=== PATIENT | female | born 1955 | race Caucasian/White ===

== ENCOUNTER 2017-01-21 09:52 | Emergency (ER) | payer MEDICARE ==
[2017-01-21 10:41] VITALS: BP 144/66
[2017-01-21] MEDS ORDERED: Albuterol 2.5 MG/3 ML NEB.SOL* (0.083%) INH ONE (10:55)
[2017-01-21] MEDS ORDERED: methylPREDNISolone 125 MG* 2 ML VIAL IV ONE (10:57)
[2017-01-21] MEDS ORDERED: methylPREDNISolone SOD 40 MG* 1 ML VIAL ONE (11:07)
[2017-01-21] MEDS ORDERED: methylPREDNISolone 125 MG* 2 ML VIAL ONE (11:08)
--- NOTE | 2017-01-21 11:48 | UC ---
guy Mccall Timothy, scribed for Winnie Louie MD on 01/21/17 at 1100 . Shortness of Breath HPI - HPI Summary HPI Summary: Jovita Nguyễn is a 61 yo female presenting to [facility] with cough and fever for the past 2 weeks. Her fever has been 101-102. She has been taking OTC cold medicine with no relief. Pt is hard of hearing, her in room is helping with communication. 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 Upon presentation, she had O2 sat in the 80's on room air. her MHx includes asthma and HTN. states she does not do regular treatment for her asthma. - History of Current Complaint Chief Complaint: UCRespiratory Stated Complaint: FEVER COUGH Time Seen by Provider: 01/21/17 10:55 Hx Obtained From: Patient, Family/[employer] Worker - Onset/Duration: Gradual Onset, Lasting Weeks, Still Present Timing: Constant Current Severity: Moderate Dyspnea At: Rest Aggrevating Factors: Nothing Alleviating Factors: Nothing Associated Signs & Symptoms: Positive: Cough (Nonproductive), Wheezing, Fever - Risk Factors Pulmonary Embolism: Negative Cardiac: Negative Pseudomonas: Chronic Lung Disease Tuberculosis: Negative - Allergy/Home Medications Allergies/Adverse Reactions: Allergies Allergy/AdvReac Type Severity Reaction Status Date / Time Codeine Allergy Severe Nausea Verified 01/21/17 10:33 Home Medications: Home Medications Albuterol HFA INHALER* [Ventolin HFA Inhaler*] 01/21/17 [History] Bp Med 1 tab BID 01/21/17 [History] Diuretic 1 tab BID 01/21/17 [History] PMH/Surg Hx/FS Hx/Imm Hx Endocrine History Of: Denies: Diabetes, Thyroid Disease Cardiovascular History Of: Reports: Hypertension Denies: Cardiac Disorders Respiratory History Of: Reports: Asthma Denies: COPD GI/ History Of: Denies: Ulcer - Surgical History Surgical History: None - Family History Known Family History: Positive: Hypertension, Diabetes - Social History Lives: With Family Alcohol Use: None Substance Use Type: None Smoking Status (MU): Never Smoked Tobacco Review of Systems Constitutional: Fever Skin: Negative Eyes: Negative ENT: Other - deaf left ear with partial hearing loss in right Respiratory: Shortness Of Breath, Cough Cardiovascular: Negative Gastrointestinal: Negative Genitourinary: Negative Motor: Negative Neurovascular: Negative Musculoskeletal: Negative Neurological: Negative Psychological: Negative All Other Systems Reviewed And Are Negative: Yes Physical Exam Triage Information Reviewed: Yes Appearance: No Pain Distress, Ill-Appearing, Obese Vital Signs: Initial Vital Signs Temp 99.2 F 01/21/17 10:34 Pulse 107 01/21/17 10:34 Resp 24 01/21/17 10:34 BP 144/66 01/21/17 10:34 Pulse Ox 85 01/21/17 10:34 low O2 sat and tachycardia noted Vital Signs Reviewed: Yes Eyes: Positive: Conjunctiva Clear ENT: Positive: Pharynx normal, TMs normal, Muffled/hoarse voice. Negative: Hearing grossly normal - deaf in left ear, hearing loss in right Neck: Positive: Supple, Nontender Respiratory: Positive: Chest non-tender, Decreased breath sounds, Wheezing - insipatory and experiatory wheezes. Negative: Normal breath sounds - decreased breath sounds throughout Cardiovascular: Positive: RRR, No Murmur, Pulses Normal, Brisk Capillary Refill Musculoskeletal: Positive: Strength Intact, ROM Intact Neurological: Positive: Alert, Muscle Tone Normal Psychological Exam: Normal Skin Exam: Normal Shortness of Breath Dx - Course Course Of Treatment: Jovita Nguyễn is a 61 yo female presenting to [facility] with SOB , fever, and cough. After clinical examination, with her lowe O2 sats, she will be transferred to [facility] for further evaluation and Tx of her breathing problems. - Differential Dx/Diagnosis Differential Diagnosis/HQI/PQRI: Asthma, Bronchitis, COPD Exacerbation, Pneumonia, Other - influenza Provider Diagnoses: dyspnea, respiratory distress - Physician Notification/Consults Discussed Patient Care With: 1100 - Adamaris Cook (PA at [facility]) - discussed Pt condition, agreed to see at [facility]. 1101 - [facility] - informed of PT condition and requested emergency transportation for Pt Discharge - Discharge Plan Condition: Stable Disposition: TRANS HIGHER LVL OF CARE FAC Discharge Disposition Comment: transferred to [facility] for higher level of care Referrals: Gerson BRAVO,Fay Driver [Primary Care Provider] - The documentation as recorded by the guy garcia Timothy accurately reflects the service I personally performed and the decisions made by me, Winnie Louie MD.
== END 2017-01-21 11:18 | disposition short-term general hospital (02) ==
LOC: UCEAST 09:52
DX: J80 Acute respiratory distress syndrome (principal); R05 Cough; R50.9 Fever, unspecified; I10 Essential (primary) hypertension; Z88.5 Allergy status to narcotic agent
CPT/HCPCS: 99203; G0463; J2920; J2930

== ENCOUNTER 2017-01-21 11:52 | Inpatient (IN) | payer MEDICARE ==
[2017-01-21] MEDS ORDERED: Albuterol/Ipratropium NEB.SOL* Albuterol 2.5 MG/Ipratropium 0.5 MG 3 ML INH PRN (12:07)
[2017-01-21] MEDS ORDERED: NS 0.9% 1000 ML* 1,000 ML IV ONE ×2 (12:07→12:34)
[2017-01-21] MEDS ORDERED: Vancomycin(*) 1,000 MG in NS 0.9% 250 ML* 250 ML IVPB ONE (12:07)
[2017-01-21] MEDS ORDERED: Vancomycin(*) 1,500 MG in NS 0.9% 250 ML* 250 ML IVPB ONE (12:09)
[2017-01-21] MEDS ORDERED: Piperac/Tazob 3.375 gm in NS* 3.375 GM/100 ML BAG IVPB ONE (12:09)
[2017-01-21 12:27] LABS: Hematocrit 40 % (35-47); Hemoglobin 12.9 g/dl (12.0-16.0); Mean Corpuscular HGB Conc 33 g/dl (31-36); Mean Corpuscular Hemoglobin 27 pg (27-31); Mean Corpuscular Volume 85 fL (80-97); Red Blood Count 4.69 10^6/ul (4.0-5.4); Red Cell Distribution Width 16 % (10.5-15); White Blood Count 11.2 10^3/ul (3.5-10.8)
[2017-01-21 12:29] LABS: Comments Flag Yes
[2017-01-21 12:32] LABS: Add Diff/Slide Review? Slide Review Added
[2017-01-21] MEDS ORDERED: Acetaminophen TAB* 325 MG PO ONE (12:44)
[2017-01-21 12:45] LABS: Albumin 3.5 g/dL (3.2-5.2); BUN/Creatinine Ratio 14.1 (8-20); Calcium 9.3 mg/dL (8.6-10.3); EGFR African American 87.7 (>60); EGFR Non-African American 68.2 (>60); Globulin 4.8 g/dL (2-4); Potassium 3.3 mmol/L (3.5-5.0); Total Protein 8.3 g/dL (6.4-8.9)
[2017-01-21 12:46] LABS: Troponin I 0.01 ng/mL (<0.04)
[2017-01-21] MEDS: Albuterol/Ipratropium NEB.SOL* Albuterol 2.5 MG/Ipratropium 0.5 MG 3 ML INH PRN ×2 (13:13→13:28)
[2017-01-21] MEDS ORDERED: Acetaminophen TAB* 325 MG PO PRN (13:32)
--- NOTE | 2017-01-21 13:37 | RAD ---
Indication: Sepsis. Single frontal view of the chest performed at 1241 hours was reviewed. No prior study is available for comparison. No mediastinal shift is noted. There is cardiomegaly noted. Airspace disease is noted in the right base which may represent early pneumonia. The study is limited due to body habitus. IMPRESSION: QUESTION OF RIGHT BASILAR PNEUMONIA.
[2017-01-21] MEDS ORDERED: NS 0.9% 1000 ML* 1,000 ML IV SCH ×2 (13:45→14:30)
[2017-01-21] MEDS ORDERED: Potassium Chlor TAB* 20 MEQ TAB.ER PO ONE (14:37)
[2017-01-21 16:14] LABS: Mean Platelet Volume 9 um3 (7.4-10.4)
[2017-01-21] MEDS: Azithromycin IV(*) 500 MG in NS 0.9% 250 ML* 250 ML IVPB SCH (16:25)
[2017-01-21] MEDS: Albuterol/Ipratropium NEB.SOL* Albuterol 2.5 MG/Ipratropium 0.5 MG 3 ML INH SCH ×3 (16:37→23:53)
[2017-01-21 17:02] LABS: PCO2 Arterial 50 mmHg (35-45)
--- NOTE | 2017-01-21 17:14 | PN ---
Progress Note - Progress Note Note: Pt's ABG shows hypoxemia, but PH WNL. I am concerned about worsening hypoxemia in the near future (already on 5 l 02). Will transfer to ICU, start Vapotherm.
[2017-01-21] MEDS: Heparin VIAL(*) 5000 UNITS/ML VIAL (FIVE THOUSAND) SUBCUT SCH ×2 (17:51→22:32)
[2017-01-21] MEDS: Metoprolol Tartrate TAB* 100 MG TAB PO SCH (17:51)
[2017-01-21] MEDS: methylPREDNISolone SOD SUCC* 125 MG 2 ML VIAL IV SCH (17:52)
[2017-01-21 17:56] LABS: Urine Bacteria 1+ (Absent); Urine Bilirubin Negative (Negative); Urine Glucose Negative (Negative); Urine Nitrite Negative (Negative)
[2017-01-21] MEDS: cefTRIAXone VIAL(*) 1,000 MG in NS 0.9% 50 ML* 50 ML IVPB SCH (20:26)
--- NOTE | 2017-01-21 21:24 | ED ---
I, Nazario,Matt, scribed for Carlos Flores MD on 01/21/17 at 1229 . Shortness of Breath - HPI Summary HPI Summary: This 61 y/o female presents to ED from [facility] with chief complaint of SOB and chest congestion that have been gradually worsening since a week ago. present at bedside reports recent cold as well as fever, chills, productive cough, and exertional SOB. Temperature of 101.4 F is noted at triage. She has been given solumedrol, duoneb, albuterol [employer], but still reports SOB. PMHx includes HTN, asthma. She pas puffer at home, but reports that pt has been noncompliant with using it. Pt currently denies any Hx of cardiac dz, but makes vague mention of diuretic she may be taking. FHx is positive for asthma. - History of Current Complaint Chief Complaint: ED Time Seen by Provider: 01/21/17 12:02 Hx Obtained From: Patient, Family/Piercing Specialist - present at bedside, Medical Records Onset/Duration: Gradual Onset, Still Present Timing: Constant Current Severity: Moderate Dyspnea At: Rest Aggrevating Factors: Movement - exertional Alleviating Factors: Nothing Associated Signs & Symptoms: Cough (Productive), Fever Related History: Obesity - Allergy/Home Medications Allergies/Adverse Reactions: Allergies Allergy/AdvReac Type Severity Reaction Status Date / Time Codeine Allergy Severe Nausea Verified 01/21/17 10:33 Home Medications: Home Medications Albuterol HFA INHALER* [Ventolin HFA Inhaler*] 2 puff INH Q6H PRN 01/21/17 [ History Confirmed 01/21/17] Hydrochlorothiazide TAB* [Hydrodiuril TAB*] 25 mg PO DAILY 01/21/17 [History Confirmed 01/21/17] Metoprolol Tartrate TAB* [Lopressor TAB*] 100 mg PO BID WITH MEALS 01/21/17 [ History Confirmed 01/21/17] amLODIPine TAB* [Norvasc TAB*] 10 mg PO DAILY 01/21/17 [History Confirmed ] PMH/Surg Hx/FS Hx/Imm Hx Endocrine/Hematology History: Denies: Hx Diabetes, Hx Thyroid Disease Cardiovascular History: Reports: Hx Hypertension Respiratory History: Reports: Hx Asthma Denies: Hx Chronic Obstructive Pulmonary Disease (COPD) GI History: Denies: Hx Ulcer Infectious Disease History: No Infectious Disease History: Denies: Hx Hepatitis, Hx Human Immunodeficiency Virus (HIV), Traveled Outside the [place] in Last 30 Days - Family History Known Family History: Positive: Hypertension, Diabetes, Respiratory Disease - asthma - Social History Lives: With Family Alcohol Use: None Hx Substance Use: No Substance Use Type: Reports: None Hx Tobacco Use: No Smoking Status (MU): Never Smoked Tobacco Review of Systems Positive: Fever Positive: Shortness Of Breath, Cough Negative: Anxious, Depressed All Other Systems Reviewed And Are Negative: Yes Physical Exam - Summary Physical Exam Summary: General: Comfortable, pleasant, alert HEENT: Dry oral mucosa. Pharynx pink but no exudate. Neck: soft, supple, no adenopathy, no edema Heart: Tachycardic, no murmurs, rubs, or gallops Lungs: Audibly wheezing, throughout when ascultated. Left basilar rales. Moderate air movement. Abdominal: Soft, flat, nontender Extremities: Trace pitting bipedal edema Neuro: Alert and oriented x 3 Psych: Logical, coherent Triage Information Reviewed: Yes Vital Signs On Initial Exam: Initial Vitals Temp Pulse Resp BP Pulse Ox 101.4 F 114 28 158/46 96 01/21/17 11:57 01/21/17 11:57 01/21/17 11:57 01/21/17 11:57 01/21/17 11:57 Vital Signs Reviewed: Yes Diagnostics - Vital Signs Vital Signs Temp Pulse Resp BP Pulse Ox 01/21/17 12:04 119 29 94 01/21/17 12:02 158/46 01/21/17 11:57 101.4 F 114 28 158/46 96 - Laboratory Lab Results: Lab Results 01/21/17 01/21/17 01/21/17 Range/Units 12:17 12:17 12:17 WBC 11.2 H (3.5-10.8) 10^3/ul RBC 4.69 (4.0-5.4) 10^6/ul Hgb 12.9 (12.0-16.0) g/dl Hct 40 (35-47) % MCV 85 (80-97) fL MCH 27 (27-31) pg MCHC 33 (31-36) g/dl RDW 16 H (10.5-15) % Plt Count (150-450) 10^3/ul MPV Not Reportable Neut % (Auto) 76.3 (38-83) % Lymph % (Auto) 10.7 L (25-47) % [place] % (Auto) 11.8 H (1-9) % Eos % (Auto) 0.2 (0-6) % Baso % (Auto) 1.0 (0-2) % Absolute Neuts (auto) 8.6 H (1.5-7.7) 10^3/ul Absolute Lymphs (auto) 1.2 (1.0-4.8) 10^3/ul Absolute Monos (auto) 1.3 H (0-0.8) 10^3/ul Absolute Eos (auto) 0 (0-0.6) 10^3/ul Absolute Basos (auto) 0.1 (0-0.2) 10^3/ul Absolute Nucleated RBC 0.02 10^3/ul Nucleated RBC % 0.2 INR (Anticoag Therapy) 1.12 H (0.89-1.11) APTT 20.0 L (26.0-36.3) seconds Sodium 130 L (133-145) mmol/L Potassium 3.3 L (3.5-5.0) mmol/L Chloride 91 L (101-111) mmol/L Carbon Dioxide 30 (22-32) mmol/L Anion Gap 9 (2-11) mmol/L BUN 12 (6-24) mg/dL Creatinine 0.85 (0.51-0.95) mg/dL Est GFR ( Amer) 87.7 (>60) Est GFR (Non-Af Amer) 68.2 (>60) BUN/Creatinine Ratio 14.1 (8-20) Glucose 129 H (70-100) mg/dL Lactic Acid (0.5-2.0) mmol/L Calcium 9.3 (8.6-10.3) mg/dL Total Bilirubin 1.00 (0.2-1.0) mg/dL AST 30 (13-39) U/L ALT 18 (7-52) U/L Alkaline Phosphatase 70 (34-104) U/L Troponin I 0.01 (<0.04) ng/mL B-Natriuretic Peptide ( - 100) pg/mL Total Protein 8.3 (6.4-8.9) g/dL Albumin 3.5 (3.2-5.2) g/dL Globulin 4.8 H (2-4) g/dL Albumin/Globulin Ratio 0.7 L (1-3) Influenza A (Rapid) (Negative) Influenza B (Rapid) (Negative) 01/21/17 01/21/17 01/21/17 Range/Units 12:17 12:17 12:37 WBC (3.5-10.8) 10^3/ul RBC (4.0-5.4) 10^6/ul Hgb (12.0-16.0) g/dl Hct (35-47) % MCV (80-97) fL MCH (27-31) pg MCHC (31-36) g/dl RDW (10.5-15) % Plt Count (150-450) 10^3/ul MPV Neut % (Auto) (38-83) % Lymph % (Auto) (25-47) % [place] % (Auto) (1-9) % Eos % (Auto) (0-6) % Baso % (Auto) (0-2) % Absolute Neuts (auto) (1.5-7.7) 10^3/ul Absolute Lymphs (auto) (1.0-4.8) 10^3/ul Absolute Monos (auto) (0-0.8) 10^3/ul Absolute Eos (auto) (0-0.6) 10^3/ul Absolute Basos (auto) (0-0.2) 10^3/ul Absolute Nucleated RBC 10^3/ul Nucleated RBC % INR (Anticoag Therapy) (0.89-1.11) APTT (26.0-36.3) seconds Sodium (133-145) mmol/L Potassium (3.5-5.0) mmol/L Chloride (101-111) mmol/L Carbon Dioxide (22-32) mmol/L Anion Gap (2-11) mmol/L BUN (6-24) mg/dL Creatinine (0.51-0.95) mg/dL Est GFR ( Amer) (>60) Est GFR (Non-Af Amer) (>60) BUN/Creatinine Ratio (8-20) Glucose (70-100) mg/dL Lactic Acid 2.2 H* (0.5-2.0) mmol/L Calcium (8.6-10.3) mg/dL Total Bilirubin (0.2-1.0) mg/dL AST (13-39) U/L ALT (7-52) U/L Alkaline Phosphatase (34-104) U/L Troponin I (<0.04) ng/mL B-Natriuretic Peptide 84 ( - 100) pg/mL Total Protein (6.4-8.9) g/dL Albumin (3.2-5.2) g/dL Globulin (2-4) g/dL Albumin/Globulin Ratio (1-3) Influenza A (Rapid) Negative (Negative) Influenza B (Rapid) Negative (Negative) Result Diagrams: 01/21/17 16:00 01/21/17 12:17 Lab Statement: Any lab studies that have been ordered have been reviewed, and results considered in the medical decision making process. - Radiology CXR Xray Interpretation: Positive (See Comments) - Right sided PNA Radiology Interpretation Completed By: Radiologist - EKG 1152 Cardiac Rate: Tachycardia - 114 bpm EKG Rhythm: Sinus Rhythm - Additional Comments Diagnostic Additional Comments: Negative rapid flu. Course/Dx - Course Assessment/Plan: She presents with cough, fever, SOB, tachycardia. Clinically she describes symptoms of PNA. She is noted with right low rales. CXR also indicates right sided PNA. She meets criteria for sepsis. We will have her admitted and evaluate for any possible cardiac conditions given her presentation. She denies any prior cardiac dz, although there is vague mention of diuretic she may be taking. - Diagnoses Differential Diagnosis/HQI/PQRI: Positive: Airway Obstruction, Airway Foreign Body, Asthma, Bronchitis, CHF, MT, Pneumonia, Pneumothorax, Pulmonary Embolism, Pulmonary Edema, SARS, Unstable Angina Provider Diagnoses: Sepsis, Pneumonia - Physician Notifications Discussed Care of Patient With: Dr. Hammond (Hospitalist) at 1241 PM. Time Discussed With Above Provider: 12:41 Instructed by Provider To: Admit As Inpatient - Critical Care Time Critical Care Time: 30-74 min - 45 minutes Discharge - Discharge Plan Condition: Stable Disposition: ADMITTED TO [facility] The documentation as recorded by the Nazario garcia Soohyun accurately reflects the service I personally performed and the decisions made by , Carlos Flores MD.
--- NOTE | 2017-01-21 21:57 | HP ---
HISTORY AND PHYSICAL: DATE OF ADMISSION: 01/21/17 PRIMARY CARE PROVIDER: TIMOTHY Carvajal CHIEF COMPLAINT: Shortness of breath, cough, and fever. HISTORY OF PRESENT ILLNESS: Please note that the patient is a poor historian and has mild intellectual delay. She is assisted by her . The patient stated that for the past 3 weeks, she has been having cough as well as frequent fevers. Her appetite had been poor. Her cough had been mostly nonproductive. When she came in to the emergency department, her temperature was 101.4 degrees. Up to that point, she had been treating herself with over- the- counter medications for pain and nonsteroidals. She appears to have right lower lobe pneumonia. She is going to be admitted with a diagnosis of sepsis with right lower lobe pneumonia. PAST MEDICAL HISTORY: 1. Hypertension. 2. Intellectual delay. 3. History of chronic bilateral leg edema. Please note the patient is a poor historian and she does not recall any further medical problems. 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 MEDICATIONS: Outpatient medications include: 1. Albuterol inhaler 2 puffs every 6 hours p.r.n. 2. Norvasc 10 mg daily. 3. Hydrochlorothiazide 25 mg daily. 4. Metoprolol tartrate 100 mg b.i.d. ALLERGIES: CODEINE. FAMILY HISTORY: Positive for heart disease of which one of her brothers in his 60s. Another brother who is in his 60s just got a stent. Her mother had a history of diabetes and father has a history of heart disease. Both are . SOCIAL HISTORY: The patient denies any tobacco, alcohol, or drug use. She is on disability. She lives with her who is her surrogate. His name is Samuel Nguyễn. REVIEW OF SYSTEMS: Please see history of present illness. Once again, the patient is a poor historian. She stated that her appetite had been poor. She stated that usually she is on hydrochlorothiazide for bilateral leg edema, but she denies really having history of heart disease or being diagnosed with CHF. All the remaining 14 review of systems were reviewed with the patient and the patient's and were otherwise negative. PHYSICAL EXAMINATION GENERAL: The patient is a very pleasant 61-year-old female who is hard of hearing. The patient is in no acute distress. Awake, alert, and oriented x3. Poor historian. VITAL SIGNS: Blood pressure of 158/46, heart rate of 114 , respiratory rate 20 , oxygen saturation 96% on 5 L of oxygen nasal cannula, the patient's oxygen saturation was 85% on room air. HEENT: Head: Atraumatic, normocephalic. Eyes: Pupils equal, reactive to light and accommodation. Oropharynx clear. Mucosa moist. NECK: Supple. No JVD, no bruit bilaterally. RESPIRATORY: Diffuse wheezes in entire bilateral lungs. Crackles in bilateral bases. CARDIOVASCULAR: Regular rate and rhythm. No murmur. ABDOMEN: Slightly protuberant. Soft, nontender. Bowel sounds present in all 4 quadrants. EXTREMITIES: There is trace bilateral ankle edema. +2 pulses bilaterally. No clubbing or cyanosis. NEUROLOGIC: Speech clear. Cranial nerves II through XII grossly intact. Motor strength is 5/5 bilaterally. The patient is severely hard of hearing. DIAGNOSTIC STUDIES/LAB DATA: Showed white blood cell count of 11.2, hemoglobin of 12.9, hematocrit of 40, and platelets are not reported. Sodium 130, chloride 91, carbon dioxide 30, BUN 12, creatinine 0.85. Lactic acid was 2.2. Troponin was 0.01. Liver functions were unremarkable. Flu test was negative. Portable chest x-ray read by the radiologist, impression: "Question of right basilar pneumonia." ASSESSMENT AND PLAN: A 61-year-old female who presents with sepsis with pneumonia. For her community-acquired pneumonia, the patient was treated with Zosyn in the ED. She is going to be continued on ceftriaxone and azithromycin while inpatient. Urine legionella and Streptococcus pneumoniae antigen are going to be obtained. Due to severe bronchospasm secondary to pneumonia, the patient is also going to be placed on Solu-Medrol as well as [id number] nebulizer treatments. For her hypertension, her outpatient medications are going to be continued apart from the hydrochlorothiazide that is going to be initially held. For DVT prophylaxis, the patient is going to be placed on heparin subcutaneously. Code status is full. The patient's surrogate is her . TIME SPENT: Approximately 60 minutes was spent on admission of the patient, more than half the time was spent [id number] with the patient during the interview and physical exam. CC: TIMOTHY Carvajal * [id number]/[facility] #: [id number] AVINASH
[2017-01-22] MEDS: methylPREDNISolone SOD SUCC* 125 MG 2 ML VIAL IV SCH ×2 (03:45→14:55)
[2017-01-22 04:12] LABS: Hematocrit 39 % (35-47); Hemoglobin 12.1 g/dl (12.0-16.0); Mean Corpuscular HGB Conc 31 g/dl (31-36); Mean Corpuscular Hemoglobin 27 pg (27-31); Mean Corpuscular Volume 85 fL (80-97); Mean Platelet Volume 9 um3 (7.4-10.4); Red Blood Count 4.52 10^6/ul (4.0-5.4); Red Cell Distribution Width 16 % (10.5-15); White Blood Count 9.1 10^3/ul (3.5-10.8)
[2017-01-22 04:20] LABS: BUN/Creatinine Ratio 18.8 (8-20); Calcium 8.6 mg/dL (8.6-10.3); EGFR African American 111.6 (>60); EGFR Non-African American 86.8 (>60); Potassium 4.1 mmol/L (3.5-5.0)
[2017-01-22 04:31] LABS: Add Diff/Slide Review? Slide Review Added; Comments Flag Yes
[2017-01-22] MEDS: Heparin VIAL(*) 5000 UNITS/ML VIAL (FIVE THOUSAND) SUBCUT SCH ×3 (06:10→21:47)
--- NOTE | 2017-01-22 08:28 | PN ---
Subjective Date of Service: 01/22/17 Interval History: Patient reports she feels better today, less SOB. No fevers since yesterday. Reports some mild diarrhea stating it started saturday and she feels that it is getting better reporting only small soft stools. No N/V/. Reports good appetite. Denies CP. Reports "junky cough" but not able to expel the sputum. Objective Active Medications: Acetaminophen (Tylenol Tab*) 650 mg PO Q4H PRN PRN Reason: FEVER/PAIN Albuterol (Ventolin Hfa Inhaler*) 2 puff INH Q6H PRN PRN Reason: SOB/WHEEZING Albuterol/Ipratropium (Duoneb Neb.Gloria*) 1 neb INH Q4H PRN PRN Reason: SOB/WHEEZING Amlodipine Besylate (Norvasc Tab*) 10 mg PO DAILY [facility] Heparin Sodium (Porcine) (Heparin Vial(*)) 5,000 units SUBCUT Q8HR [facility] Last Admin: 01/22/17 06:10 Dose: 5,000 units Ceftriaxone Sodium 1,000 mg/ (Sodium Chloride) 50 mls @ 200 mls/hr IVPB Q24H [facility] Last Admin: 01/21/17 20:26 Dose: 200 mls/hr Azithromycin 500 mg/ Sodium (Chloride) 250 mls @ 250 mls/hr IVPB Q24H [facility] Last Admin: 01/21/17 16:25 Dose: 250 mls/hr Sodium Chloride (Ns 0.9% 1000 Ml*) 1,000 mls @ 125 mls/hr IV PER RATE [facility] Last Admin: 01/21/17 16:25 Dose: 125 mls/hr Methylprednisolone Sodium Succinate (Solu-Medrol*) 60 mg IV Q12H [facility] Last Admin: 01/22/17 03:45 Dose: 60 mg Metoprolol Tartrate (Lopressor Tab*) 100 mg PO BID WITH MEALS [facility] Last Admin: 01/21/17 17:51 Dose: 100 mg Vital Signs 01/22/17 01/22/17 01/22/17 06:15 06:30 06:45 Temperature Pulse Rate 76 74 91 Respiratory 20 18 23 Rate Blood Pressure 125/62 126/64 137/73 (mmHg) O2 Sat by Pulse 95 94 93 Oximetry 01/22/17 01/22/17 01/22/17 07:00 07:15 07:18 Temperature Pulse Rate 78 77 80 Respiratory 21 20 19 Rate Blood Pressure 119/62 75/50 93/64 (mmHg) O2 Sat by Pulse 93 94 94 Oximetry 01/22/17 08:00 Temperature 98.9 F Pulse Rate Respiratory Rate Blood Pressure (mmHg) O2 Sat by Pulse Oximetry Oxygen Devices in Use Now: High Flow Nasal Cannula - 40/40 Appearance: obese 61 yo female with noted mild intellectual discability sitting up in bed in NAD A+O x3 Eyes: No Scleral Icterus, PERRLA Ears/Nose/Mouth/Throat: NL Teeth, Lips, Gums, Mucous Membranes Moist Neck: NL Appearance and Movements; NL JVP Respiratory: Symmetrical Chest Expansion and Respiratory Effort, - - wild b/l rhonchi throughout Cardiovascular: NL Sounds; No Murmurs; No JVD, RRR, No Edema Abdominal: NL Sounds; No Tenderness; No Distention Lymphatic: No Cervical Adenopathy Extremities: No Edema, No Clubbing, Cyanosis Skin: No Rash or Ulcers, No Nodules or Sclerosis Neurological: Alert and Oriented x 3, NL Sensation, NL Muscle Strength and Tone Lines/Tubes/Other Access: Clean, Dry and Intact Peripheral IV Nutrition: Taking PO's Result Diagrams: 01/22/17 03:55 01/22/17 03:55 Additional Lab and Data: Lab Results 01/21/17 01/21/17 01/21/17 Range/Units 12:17 12:17 12:17 WBC 11.2 H (3.5-10.8) 10^3/ul RBC 4.69 (4.0-5.4) 10^6/ul Hgb 12.9 (12.0-16.0) g/dl Hct 40 (35-47) % MCV 85 (80-97) fL MCH 27 (27-31) pg MCHC 33 (31-36) g/dl RDW 16 H (10.5-15) % Plt Count (150-450) 10^3/ul MPV Not Reportable Neut % (Auto) 76.3 (38-83) % Lymph % (Auto) 10.7 L (25-47) % Monroe % (Auto) 11.8 H (1-9) % Eos % (Auto) 0.2 (0-6) % Baso % (Auto) 1.0 (0-2) % Absolute Neuts (auto) 8.6 H (1.5-7.7) 10^3/ul Absolute Lymphs (auto) 1.2 (1.0-4.8) 10^3/ul Absolute Monos (auto) 1.3 H (0-0.8) 10^3/ul Absolute Eos (auto) 0 (0-0.6) 10^3/ul Absolute Basos (auto) 0.1 (0-0.2) 10^3/ul Absolute Nucleated RBC 0.02 10^3/ul Nucleated RBC % 0.2 INR (Anticoag Therapy) 1.12 H (0.89-1.11) APTT 20.0 L (26.0-36.3) seconds Sodium 130 L (133-145) mmol/L Potassium 3.3 L (3.5-5.0) mmol/L Chloride 91 L (101-111) mmol/L Carbon Dioxide 30 (22-32) mmol/L Anion Gap 9 (2-11) mmol/L BUN 12 (6-24) mg/dL Creatinine 0.85 (0.51-0.95) mg/dL Est GFR ( Amer) 87.7 (>60) Est GFR (Non-Af Amer) 68.2 (>60) BUN/Creatinine Ratio 14.1 (8-20) Glucose 129 H (70-100) mg/dL Lactic Acid (0.5-2.0) mmol/L Calcium 9.3 (8.6-10.3) mg/dL Total Bilirubin 1.00 (0.2-1.0) mg/dL AST 30 (13-39) U/L ALT 18 (7-52) U/L Alkaline Phosphatase 70 (34-104) U/L Troponin I 0.01 (<0.04) ng/mL B-Natriuretic Peptide ( - 100) pg/mL Total Protein 8.3 (6.4-8.9) g/dL Albumin 3.5 (3.2-5.2) g/dL Globulin 4.8 H (2-4) g/dL Albumin/Globulin Ratio 0.7 L (1-3) Influenza A (Rapid) (Negative) Influenza B (Rapid) (Negative) 01/21/17 01/21/17 01/21/17 Range/Units 12:17 12:17 12:37 WBC (3.5-10.8) 10^3/ul RBC (4.0-5.4) 10^6/ul Hgb (12.0-16.0) g/dl Hct (35-47) % MCV (80-97) fL MCH (27-31) pg MCHC (31-36) g/dl RDW (10.5-15) % Plt Count (150-450) 10^3/ul MPV Neut % (Auto) (38-83) % Lymph % (Auto) (25-47) % Monroe % (Auto) (1-9) % Eos % (Auto) (0-6) % Baso % (Auto) (0-2) % Absolute Neuts (auto) (1.5-7.7) 10^3/ul Absolute Lymphs (auto) (1.0-4.8) 10^3/ul Absolute Monos (auto) (0-0.8) 10^3/ul Absolute Eos (auto) (0-0.6) 10^3/ul Absolute Basos (auto) (0-0.2) 10^3/ul Absolute Nucleated RBC 10^3/ul Nucleated RBC % INR (Anticoag Therapy) (0.89-1.11) APTT (26.0-36.3) seconds Sodium (133-145) mmol/L Potassium (3.5-5.0) mmol/L Chloride (101-111) mmol/L Carbon Dioxide (22-32) mmol/L Anion Gap (2-11) mmol/L BUN (6-24) mg/dL Creatinine (0.51-0.95) mg/dL Est GFR ( Amer) (>60) Est GFR (Non-Af Amer) (>60) BUN/Creatinine Ratio (8-20) Glucose (70-100) mg/dL Lactic Acid 2.2 H* (0.5-2.0) mmol/L Calcium (8.6-10.3) mg/dL Total Bilirubin (0.2-1.0) mg/dL AST (13-39) U/L ALT (7-52) U/L Alkaline Phosphatase (34-104) U/L Troponin I (<0.04) ng/mL B-Natriuretic Peptide 84 ( - 100) pg/mL Total Protein (6.4-8.9) g/dL Albumin (3.2-5.2) g/dL Globulin (2-4) g/dL Albumin/Globulin Ratio (1-3) Influenza A (Rapid) Negative (Negative) Influenza B (Rapid) Negative (Negative) Microbiology and Other Data: Microbiology 01/21/17 21:40 Legionella Urinary Antigen - Final Urine Negative Legionella Streptococcus pneumoniae Ag Screen - Final Negative S. pneumo Antigen 01/21/17 18:28 Nasal Screen MRSA (PCR)(ADELA) - Final Nasal Mrsa Negative Assess/Plan/Problems-Billing Assessment: Ms. Nguyễn is a 61 yo female with a PMH of intellectual disability, chronic LE edema and HTN who presented to the emergency department on 01/21/18 with c/o sob, cough, fever found to have severe bronchospasm secondary to pneumonia. - Patient Problems (1) Pneumonia Comment: - Acute hypoxic hypercarbic respiratory failure secondary to right basilar pneumonia - compensated on ABG with normal pH - Clinically improving but continues to require Vapotherm 40L 40% with O2 sat 92 -92%, plan for aggressive pulm tolieting with attempt to wean oxygen as tolerates. afebrile this morning - on admission was noted to have temp 101. Leukocytosis resolved. - continue ceftriaxone and azithro -continue solumedrol with titration (2) HTN (hypertension) Comment: - Continue Metoprolol and norvasc with hold parameters (3) DVT prophylaxis Comment: HSQ (4) Full code status Status and Disposition: Inpatient with acute respiratory hypercarbic hypoxic respiratory failure secondary to pneumonia. Home when medical stable.
[2017-01-22] MEDS ORDERED: NS 0.9% 1000 ML* 1,000 ML IV SCH (08:46)
[2017-01-22] MEDS ORDERED: amLODIPine TAB* 5 MG PO SCH (09:00)
[2017-01-22] MEDS: amLODIPine TAB* 5 MG PO SCH (09:16)
[2017-01-22] MEDS ORDERED: NS 0.9% 250 ML* 250 ML ONE (14:54)
[2017-01-22] MEDS: Azithromycin IV(*) 500 MG in NS 0.9% 250 ML* 250 ML IVPB SCH (14:55)
[2017-01-22] MEDS: Albuterol/Ipratropium NEB.SOL* Albuterol 2.5 MG/Ipratropium 0.5 MG 3 ML INH PRN (16:10)
[2017-01-22] MEDS: Metoprolol Tartrate TAB* 100 MG TAB PO SCH (16:57)
[2017-01-22] MEDS: cefTRIAXone VIAL(*) 1,000 MG in NS 0.9% 50 ML* 50 ML IVPB SCH (19:38)
[2017-01-23] MEDS: Heparin VIAL(*) 5000 UNITS/ML VIAL (FIVE THOUSAND) SUBCUT SCH ×3 (05:58→21:33)
[2017-01-23 07:07] LABS: Hematocrit 38 % (35-47); Hemoglobin 12.1 g/dl (12.0-16.0); Mean Corpuscular HGB Conc 32 g/dl (31-36); Mean Corpuscular Hemoglobin 27 pg (27-31); Mean Corpuscular Volume 87 fL (80-97); Mean Platelet Volume 9 um3 (7.4-10.4); Red Blood Count 4.41 10^6/ul (4.0-5.4); Red Cell Distribution Width 17 % (10.5-15); White Blood Count 10.6 10^3/ul (3.5-10.8)
[2017-01-23 07:18] LABS: BUN/Creatinine Ratio 23.6 (8-20); Calcium 8.6 mg/dL (8.6-10.3); EGFR African American 106.3 (>60); EGFR Non-African American 82.6 (>60); Potassium 4.7 mmol/L (3.5-5.0)
[2017-01-23] MEDS: methylPREDNISolone SOD SUCC* 40 MG/ML VIAL IV SCH ×2 (08:44→21:33)
[2017-01-23] MEDS: amLODIPine TAB* 5 MG PO SCH (08:44)
[2017-01-23] MEDS: Metoprolol Tartrate TAB* 100 MG TAB PO SCH ×3 (08:44→17:24)
--- NOTE | 2017-01-23 09:13 | PN ---
Subjective Date of Service: 01/23/17 Interval History: Pt reports she feels better and would like to go home. Reports cough with no sputum production. No fevers or chills. Decreased appetite but reports its improving. continues to have diarrhea. No abdominal pain or nausea/vomiting Objective Active Medications: Acetaminophen (Tylenol Tab*) 650 mg PO Q4H PRN PRN Reason: FEVER/PAIN Albuterol (Ventolin Hfa Inhaler*) 2 puff INH Q6H PRN PRN Reason: SOB/WHEEZING Albuterol/Ipratropium (Duoneb Neb.Gloria*) 1 neb INH Q4H PRN PRN Reason: SOB/WHEEZING Last Admin: 01/22/17 16:10 Dose: 1 neb Amlodipine Besylate (Norvasc Tab*) 10 mg PO DAILY [facility] Last Admin: 01/23/17 08:44 Dose: 10 mg Heparin Sodium (Porcine) (Heparin Vial(*)) 5,000 units SUBCUT Q8HR [facility] Last Admin: 01/23/17 05:58 Dose: 5,000 units Ceftriaxone Sodium 1,000 mg/ (Sodium Chloride) 50 mls @ 200 mls/hr IVPB Q24H [facility] Last Admin: 01/22/17 19:38 Dose: 200 mls/hr Azithromycin 500 mg/ Sodium (Chloride) 250 mls @ 250 mls/hr IVPB Q24H [facility] Last Admin: 01/22/17 14:55 Dose: 250 mls/hr Methylprednisolone Sodium Succinate (Solu-Medrol*) 40 mg IV Q12H [facility] Last Admin: 01/23/17 08:44 Dose: 40 mg Metoprolol Tartrate (Lopressor Tab*) 100 mg PO BID WITH MEALS [facility] Last Admin: 01/23/17 08:44 Dose: 100 mg Vital Signs 01/23/17 01/23/17 01/23/17 05:59 06:00 07:00 Temperature Pulse Rate 78 55 Respiratory 17 18 11 Rate Blood Pressure 116/52 (mmHg) O2 Sat by Pulse 97 97 Oximetry 01/23/17 01/23/17 01/23/17 07:59 08:00 08:37 Temperature 97.6 F Pulse Rate 73 75 Respiratory 15 18 Rate Blood Pressure 105/63 121/65 (mmHg) O2 Sat by Pulse 98 99 Oximetry 01/23/17 09:00 Temperature Pulse Rate 81 Respiratory 21 Rate Blood Pressure 150/111 (mmHg) O2 Sat by Pulse 97 Oximetry Oxygen Devices in Use Now: Nasal Cannula - 4L NC Appearance: obese female sitting up in a chair in NAD. A+Ox3 Eyes: No Scleral Icterus, PERRLA Ears/Nose/Mouth/Throat: NL Teeth, Lips, Gums, Mucous Membranes Moist Neck: NL Appearance and Movements; NL JVP Respiratory: Symmetrical Chest Expansion and Respiratory Effort, - - rhonchi bilaterally Cardiovascular: NL Sounds; No Murmurs; No JVD, RRR, No Edema Abdominal: NL Sounds; No Tenderness; No Distention, - - obese Extremities: No Edema, No Clubbing, Cyanosis Skin: No Rash or Ulcers, No Nodules or Sclerosis Neurological: Alert and Oriented x 3, NL Sensation, NL Gait, NL Muscle Strength and Tone Lines/Tubes/Other Access: Clean, Dry and Intact Peripheral IV Nutrition: Taking PO's Result Diagrams: 01/23/17 05:55 01/23/17 05:55 Additional Lab and Data: Lab Results 01/21/17 01/21/17 01/21/17 Range/Units 12:17 12:17 12:17 WBC 11.2 H (3.5-10.8) 10^3/ul RBC 4.69 (4.0-5.4) 10^6/ul Hgb 12.9 (12.0-16.0) g/dl Hct 40 (35-47) % MCV 85 (80-97) fL MCH 27 (27-31) pg MCHC 33 (31-36) g/dl RDW 16 H (10.5-15) % Plt Count (150-450) 10^3/ul MPV Not Reportable Neut % (Auto) 76.3 (38-83) % Lymph % (Auto) 10.7 L (25-47) % Upson % (Auto) 11.8 H (1-9) % Eos % (Auto) 0.2 (0-6) % Baso % (Auto) 1.0 (0-2) % Absolute Neuts (auto) 8.6 H (1.5-7.7) 10^3/ul Absolute Lymphs (auto) 1.2 (1.0-4.8) 10^3/ul Absolute Monos (auto) 1.3 H (0-0.8) 10^3/ul Absolute Eos (auto) 0 (0-0.6) 10^3/ul Absolute Basos (auto) 0.1 (0-0.2) 10^3/ul Absolute Nucleated RBC 0.02 10^3/ul Nucleated RBC % 0.2 INR (Anticoag Therapy) 1.12 H (0.89-1.11) APTT 20.0 L (26.0-36.3) seconds Sodium 130 L (133-145) mmol/L Potassium 3.3 L (3.5-5.0) mmol/L Chloride 91 L (101-111) mmol/L Carbon Dioxide 30 (22-32) mmol/L Anion Gap 9 (2-11) mmol/L BUN 12 (6-24) mg/dL Creatinine 0.85 (0.51-0.95) mg/dL Est GFR ( Amer) 87.7 (>60) Est GFR (Non-Af Amer) 68.2 (>60) BUN/Creatinine Ratio 14.1 (8-20) Glucose 129 H (70-100) mg/dL Lactic Acid (0.5-2.0) mmol/L Calcium 9.3 (8.6-10.3) mg/dL Total Bilirubin 1.00 (0.2-1.0) mg/dL AST 30 (13-39) U/L ALT 18 (7-52) U/L Alkaline Phosphatase 70 (34-104) U/L Troponin I 0.01 (<0.04) ng/mL B-Natriuretic Peptide ( - 100) pg/mL Total Protein 8.3 (6.4-8.9) g/dL Albumin 3.5 (3.2-5.2) g/dL Globulin 4.8 H (2-4) g/dL Albumin/Globulin Ratio 0.7 L (1-3) Influenza A (Rapid) (Negative) Influenza B (Rapid) (Negative) 01/21/17 01/21/17 01/21/17 Range/Units 12:17 12:17 12:37 WBC (3.5-10.8) 10^3/ul RBC (4.0-5.4) 10^6/ul Hgb (12.0-16.0) g/dl Hct (35-47) % MCV (80-97) fL MCH (27-31) pg MCHC (31-36) g/dl RDW (10.5-15) % Plt Count (150-450) 10^3/ul MPV Neut % (Auto) (38-83) % Lymph % (Auto) (25-47) % Upson % (Auto) (1-9) % Eos % (Auto) (0-6) % Baso % (Auto) (0-2) % Absolute Neuts (auto) (1.5-7.7) 10^3/ul Absolute Lymphs (auto) (1.0-4.8) 10^3/ul Absolute Monos (auto) (0-0.8) 10^3/ul Absolute Eos (auto) (0-0.6) 10^3/ul Absolute Basos (auto) (0-0.2) 10^3/ul Absolute Nucleated RBC 10^3/ul Nucleated RBC % INR (Anticoag Therapy) (0.89-1.11) APTT (26.0-36.3) seconds Sodium (133-145) mmol/L Potassium (3.5-5.0) mmol/L Chloride (101-111) mmol/L Carbon Dioxide (22-32) mmol/L Anion Gap (2-11) mmol/L BUN (6-24) mg/dL Creatinine (0.51-0.95) mg/dL Est GFR ( Amer) (>60) Est GFR (Non-Af Amer) (>60) BUN/Creatinine Ratio (8-20) Glucose (70-100) mg/dL Lactic Acid 2.2 H* (0.5-2.0) mmol/L Calcium (8.6-10.3) mg/dL Total Bilirubin (0.2-1.0) mg/dL AST (13-39) U/L ALT (7-52) U/L Alkaline Phosphatase (34-104) U/L Troponin I (<0.04) ng/mL B-Natriuretic Peptide 84 ( - 100) pg/mL Total Protein (6.4-8.9) g/dL Albumin (3.2-5.2) g/dL Globulin (2-4) g/dL Albumin/Globulin Ratio (1-3) Influenza A (Rapid) Negative (Negative) Influenza B (Rapid) Negative (Negative) Microbiology and Other Data: Microbiology 01/21/17 21:40 Legionella Urinary Antigen - Final Urine Negative Legionella Streptococcus pneumoniae Ag Screen - Final Negative S. pneumo Antigen 01/21/17 18:28 Nasal Screen MRSA (PCR)([facility]) - Final Nasal Mrsa Negative Assess/Plan/Problems-Billing Assessment: Ms. Nguyễn is a 61 yo female with a PMH of intellectual disability, chronic LE edema and HTN who presented to the emergency department on 01/21/18 with c/o sob, cough, fever found to have severe bronchospasm secondary to pneumonia. - Patient Problems (1) Pneumonia Comment: - Acute hypoxic hypercarbic respiratory failure secondary to right basilar pneumonia - compensated on ABG with normal pH - Clinically improving now on 4L with O2 sats 92%, continue aggressive pulm tolieting with attempt to wean oxygen as tolerates. afebrile this morning - on admission was noted to have temp 101. Leukocytosis resolved. - negtaive influenza, negative urine antigens legionella & s. pneum - Blood cx negative so far - continue ceftriaxone and azithro -continue solumedrol with titration - should have outpt sleep study (2) HTN (hypertension) Comment: - Normotensive. Continue Metoprolol and norvasc with hold parameters (3) DVT prophylaxis Comment: HSQ (4) Full code status Status and Disposition: Inpatient with acute respiratory hypercarbic hypoxic respiratory failure secondary to pneumonia - transfer to Medical floor. Home when medically stable.
[2017-01-23] MEDS: Albuterol/Ipratropium NEB.SOL* Albuterol 2.5 MG/Ipratropium 0.5 MG 3 ML INH PRN ×2 (11:00→18:15)
[2017-01-23] MEDS: Azithromycin IV(*) 500 MG in NS 0.9% 250 ML* 250 ML IVPB SCH (15:19)
[2017-01-23] MEDS: cefTRIAXone VIAL(*) 1,000 MG in NS 0.9% 50 ML* 50 ML IVPB SCH (20:01)
[2017-01-24] MEDS: Heparin VIAL(*) 5000 UNITS/ML VIAL (FIVE THOUSAND) SUBCUT SCH ×3 (06:16→21:46)
[2017-01-24 06:52] LABS: Hematocrit 40 % (35-47); Hemoglobin 12.8 g/dl (12.0-16.0); Mean Corpuscular HGB Conc 32 g/dl (31-36); Mean Corpuscular Hemoglobin 27 pg (27-31); Mean Corpuscular Volume 85 fL (80-97); Mean Platelet Volume 9 um3 (7.4-10.4); Red Blood Count 4.67 10^6/ul (4.0-5.4); Red Cell Distribution Width 16 % (10.5-15); White Blood Count 7.4 10^3/ul (3.5-10.8)
[2017-01-24 06:55] LABS: Add Diff/Slide Review? Slide Review Added; Comments Flag Yes
[2017-01-24 07:13] LABS: BUN/Creatinine Ratio 25.4 (8-20); Calcium 9.1 mg/dL (8.6-10.3); EGFR African American 133.7 (>60); Potassium 4.4 mmol/L (3.5-5.0)
[2017-01-24] MEDS: amLODIPine TAB* 5 MG PO SCH (08:38)
[2017-01-24] MEDS: Metoprolol Tartrate TAB* 100 MG TAB PO SCH ×2 (08:38→17:25)
[2017-01-24] MEDS: predniSONE TAB* 20 MG PO SCH (08:38)
[2017-01-24] MEDS: Albuterol/Ipratropium NEB.SOL* Albuterol 2.5 MG/Ipratropium 0.5 MG 3 ML INH PRN ×3 (09:42→22:05)
[2017-01-24] MEDS ORDERED: Azithromycin IV(*) 500 MG in NS 0.9% 250 ML* 250 ML IVPB SCH (15:00)
--- NOTE | 2017-01-24 15:38 | PN ---
Subjective Date of Service: 01/24/17 Interval History: Pt reports she is "feeling great and wants to go home", she appears tachypneic ambulating to bathroom. She denies SOB or CP. Dneies wheezing. Reports good appetite. No fevers or chills. Reports diarrhea has improved but still has loose stools Objective Active Medications: Acetaminophen (Tylenol Tab*) 650 mg PO Q4H PRN PRN Reason: FEVER/PAIN Albuterol (Ventolin Hfa Inhaler*) 2 puff INH Q6H PRN PRN Reason: SOB/WHEEZING Albuterol/Ipratropium (Duoneb Neb.Gloria*) 1 neb INH Q4H PRN PRN Reason: SOB/WHEEZING Last Admin: 01/24/17 09:42 Dose: 1 neb Amlodipine Besylate (Norvasc Tab*) 10 mg PO DAILY [facility] Last Admin: 01/24/17 08:38 Dose: 10 mg Heparin Sodium (Porcine) (Heparin Vial(*)) 5,000 units SUBCUT Q8HR [facility] Last Admin: 01/24/17 13:27 Dose: 5,000 units Ceftriaxone Sodium 1,000 mg/ (Sodium Chloride) 50 mls @ 200 mls/hr IVPB Q24H [facility] Last Admin: 01/23/17 20:01 Dose: 200 mls/hr Azithromycin 500 mg/ Sodium (Chloride) 250 mls @ 250 mls/hr IVPB 1500 [facility] Last Admin: 01/24/17 14:53 Dose: 250 mls/hr Metoprolol Tartrate (Lopressor Tab*) 100 mg PO BID WITH MEALS [facility] Last Admin: 01/24/17 08:38 Dose: 100 mg Prednisone (Deltasone Tab*) 40 mg PO DAILY [facility] Last Admin: 01/24/17 08:38 Dose: 40 mg Vital Signs 01/23/17 01/23/17 01/23/17 17:17 18:17 20:00 Temperature 97.8 F Pulse Rate 77 60 Respiratory 20 22 20 Rate Blood Pressure 136/55 (mmHg) O2 Sat by Pulse 97 97 Oximetry 01/23/17 01/24/17 01/24/17 23:16 04:47 08:15 Temperature 97.6 F Pulse Rate 61 78 Respiratory 17 16 24 Rate Blood Pressure 123/57 143/73 (mmHg) O2 Sat by Pulse 92 95 Oximetry 01/24/17 01/24/17 01/24/17 08:34 09:44 11:44 Temperature 97.2 F Pulse Rate 78 78 67 Respiratory 14 22 16 Rate Blood Pressure 150/71 130/66 (mmHg) O2 Sat by Pulse 96 93 95 Oximetry Oxygen Devices in Use Now: Nasal Cannula - 4L NC Appearance: obese female walking in her room A+O x3 appears mildly tachypneic Eyes: No Scleral Icterus, PERRLA Ears/Nose/Mouth/Throat: NL Teeth, Lips, Gums, Mucous Membranes Moist Neck: NL Appearance and Movements; NL JVP Respiratory: Symmetrical Chest Expansion and Respiratory Effort, - - course rhonchi and exp wheezes b/l Cardiovascular: NL Sounds; No Murmurs; No JVD, RRR, No Edema Abdominal: NL Sounds; No Tenderness; No Distention, - - obese Extremities: No Edema Skin: No Rash or Ulcers, No Nodules or Sclerosis Neurological: Alert and Oriented x 3, NL Sensation, NL Gait, NL Muscle Strength and Tone Lines/Tubes/Other Access: Clean, Dry and Intact Peripheral IV Nutrition: Taking PO's Result Diagrams: 01/24/17 06:43 01/24/17 06:43 Additional Lab and Data: Lab Results 01/21/17 01/21/17 01/21/17 Range/Units 12:17 12:17 12:17 WBC 11.2 H (3.5-10.8) 10^3/ul RBC 4.69 (4.0-5.4) 10^6/ul Hgb 12.9 (12.0-16.0) g/dl Hct 40 (35-47) % MCV 85 (80-97) fL MCH 27 (27-31) pg MCHC 33 (31-36) g/dl RDW 16 H (10.5-15) % Plt Count (150-450) 10^3/ul MPV Not Reportable Neut % (Auto) 76.3 (38-83) % Lymph % (Auto) 10.7 L (25-47) % Cole % (Auto) 11.8 H (1-9) % Eos % (Auto) 0.2 (0-6) % Baso % (Auto) 1.0 (0-2) % Absolute Neuts (auto) 8.6 H (1.5-7.7) 10^3/ul Absolute Lymphs (auto) 1.2 (1.0-4.8) 10^3/ul Absolute Monos (auto) 1.3 H (0-0.8) 10^3/ul Absolute Eos (auto) 0 (0-0.6) 10^3/ul Absolute Basos (auto) 0.1 (0-0.2) 10^3/ul Absolute Nucleated RBC 0.02 10^3/ul Nucleated RBC % 0.2 INR (Anticoag Therapy) 1.12 H (0.89-1.11) APTT 20.0 L (26.0-36.3) seconds Sodium 130 L (133-145) mmol/L Potassium 3.3 L (3.5-5.0) mmol/L Chloride 91 L (101-111) mmol/L Carbon Dioxide 30 (22-32) mmol/L Anion Gap 9 (2-11) mmol/L BUN 12 (6-24) mg/dL Creatinine 0.85 (0.51-0.95) mg/dL Est GFR ( Amer) 87.7 (>60) Est GFR (Non-Af Amer) 68.2 (>60) BUN/Creatinine Ratio 14.1 (8-20) Glucose 129 H (70-100) mg/dL Lactic Acid (0.5-2.0) mmol/L Calcium 9.3 (8.6-10.3) mg/dL Total Bilirubin 1.00 (0.2-1.0) mg/dL AST 30 (13-39) U/L ALT 18 (7-52) U/L Alkaline Phosphatase 70 (34-104) U/L Troponin I 0.01 (<0.04) ng/mL B-Natriuretic Peptide ( - 100) pg/mL Total Protein 8.3 (6.4-8.9) g/dL Albumin 3.5 (3.2-5.2) g/dL Globulin 4.8 H (2-4) g/dL Albumin/Globulin Ratio 0.7 L (1-3) Influenza A (Rapid) (Negative) Influenza B (Rapid) (Negative) 01/21/17 01/21/17 01/21/17 Range/Units 12:17 12:17 12:37 WBC (3.5-10.8) 10^3/ul RBC (4.0-5.4) 10^6/ul Hgb (12.0-16.0) g/dl Hct (35-47) % MCV (80-97) fL MCH (27-31) pg MCHC (31-36) g/dl RDW (10.5-15) % Plt Count (150-450) 10^3/ul MPV Neut % (Auto) (38-83) % Lymph % (Auto) (25-47) % Cole % (Auto) (1-9) % Eos % (Auto) (0-6) % Baso % (Auto) (0-2) % Absolute Neuts (auto) (1.5-7.7) 10^3/ul Absolute Lymphs (auto) (1.0-4.8) 10^3/ul Absolute Monos (auto) (0-0.8) 10^3/ul Absolute Eos (auto) (0-0.6) 10^3/ul Absolute Basos (auto) (0-0.2) 10^3/ul Absolute Nucleated RBC 10^3/ul Nucleated RBC % INR (Anticoag Therapy) (0.89-1.11) APTT (26.0-36.3) seconds Sodium (133-145) mmol/L Potassium (3.5-5.0) mmol/L Chloride (101-111) mmol/L Carbon Dioxide (22-32) mmol/L Anion Gap (2-11) mmol/L BUN (6-24) mg/dL Creatinine (0.51-0.95) mg/dL Est GFR ( Amer) (>60) Est GFR (Non-Af Amer) (>60) BUN/Creatinine Ratio (8-20) Glucose (70-100) mg/dL Lactic Acid 2.2 H* (0.5-2.0) mmol/L Calcium (8.6-10.3) mg/dL Total Bilirubin (0.2-1.0) mg/dL AST (13-39) U/L ALT (7-52) U/L Alkaline Phosphatase (34-104) U/L Troponin I (<0.04) ng/mL B-Natriuretic Peptide 84 ( - 100) pg/mL Total Protein (6.4-8.9) g/dL Albumin (3.2-5.2) g/dL Globulin (2-4) g/dL Albumin/Globulin Ratio (1-3) Influenza A (Rapid) Negative (Negative) Influenza B (Rapid) Negative (Negative) Microbiology and Other Data: Microbiology 01/21/17 21:40 Legionella Urinary Antigen - Final Urine Negative Legionella Streptococcus pneumoniae Ag Screen - Final Negative S. pneumo Antigen 01/21/17 18:28 Nasal Screen MRSA (PCR)([facility]EL[facility]) - Final Nasal Mrsa Negative Assess/Plan/Problems-Billing Assessment: Ms. Nguyễn is a 61 yo female with a PMH of intellectual disability, chronic LE edema and HTN who presented to the emergency department on 01/21/18 with c/o sob, cough, fever found to have severe bronchospasm secondary to pneumonia. - Patient Problems (1) Pneumonia Comment: - Acute hypoxic hypercarbic respiratory failure secondary to right basilar pneumonia - compensated on ABG with normal pH - Clinically improving, but slowly - on 3-4L with O2 sats 92%, continue aggressive pulm tolieting with attempt to wean oxygen as tolerates. > 48 hours afebrile - on admission was noted to have temp 101. Leukocytosis resolved. - negtaive influenza, negative urine antigens legionella & s. pneum - Blood cx negative so far - continue ceftriaxone and azithro -continue solumedrol with titration - should have outpt sleep study (2) HTN (hypertension) Comment: - Normotensive. Continue Metoprolol and norvasc with hold parameters (3) DVT prophylaxis Comment: HSQ (4) Full code status Status and Disposition: Inpatient with acute respiratory hypercarbic hypoxic respiratory failure secondary to pneumonia. Home when medically stable.
[2017-01-24] MEDS: cefTRIAXone VIAL(*) 1,000 MG in NS 0.9% 50 ML* 50 ML IVPB SCH (21:33)
[2017-01-25] MEDS: Albuterol HFA INHALER* 8 gm MDI INH PRN ×2 (04:55→22:30)
[2017-01-25] MEDS: Heparin VIAL(*) 5000 UNITS/ML VIAL (FIVE THOUSAND) SUBCUT SCH ×3 (05:36→22:30)
[2017-01-25 06:15] LABS: Hematocrit 42 % (35-47); Hemoglobin 13.3 g/dl (12.0-16.0); Mean Corpuscular HGB Conc 32 g/dl (31-36); Mean Corpuscular Hemoglobin 27 pg (27-31); Mean Corpuscular Volume 85 fL (80-97); Mean Platelet Volume 9 um3 (7.4-10.4); Red Blood Count 4.98 10^6/ul (4.0-5.4); Red Cell Distribution Width 16 % (10.5-15); White Blood Count 12.9 10^3/ul (3.5-10.8)
[2017-01-25 06:19] LABS: Add Diff/Slide Review? Slide Review Added; Comments Flag Yes
[2017-01-25 06:28] LABS: BUN/Creatinine Ratio 23.2 (8-20); Calcium 9.4 mg/dL (8.6-10.3); EGFR Non-African American 110.4 (>60)
[2017-01-25] MEDS: amLODIPine TAB* 5 MG PO SCH (08:49)
[2017-01-25] MEDS: predniSONE TAB* 20 MG PO SCH (08:49)
[2017-01-25] MEDS: Metoprolol Tartrate TAB* 100 MG TAB PO SCH ×2 (08:49→16:09)
[2017-01-25] MEDS: Albuterol/Ipratropium NEB.SOL* Albuterol 2.5 MG/Ipratropium 0.5 MG 3 ML INH PRN (08:53)
--- NOTE | 2017-01-25 10:32 | PN ---
Subjective Date of Service: 01/25/17 Interval History: . Patient reports "I feel better and want to go home" denies SOB or wheezing - but it is obvious from standing next to her she has significant wheezing and is breathing heavy. NAD. Denies CP. Denies fever or chills. Reports good appetite. No N/V, reports her diarrhea is "much much better". Per mother in law she has "bad asthma at her baseline and doesn't follow up closely with her PCP. No neb machine at home. Objective Active Medications: Acetaminophen (Tylenol Tab*) 650 mg PO Q4H PRN PRN Reason: FEVER/PAIN Albuterol (Ventolin Hfa Inhaler*) 2 puff INH Q6H PRN PRN Reason: SOB/WHEEZING Last Admin: 01/25/17 04:55 Dose: 2 puff Albuterol/Ipratropium (Duoneb Neb.Gloria*) 1 neb INH Q4H PRN PRN Reason: SOB/WHEEZING Last Admin: 01/25/17 08:53 Dose: 1 neb Amlodipine Besylate (Norvasc Tab*) 10 mg PO DAILY [facility] Last Admin: 01/25/17 08:49 Dose: 10 mg Heparin Sodium (Porcine) (Heparin Vial(*)) 5,000 units SUBCUT Q8HR [facility] Last Admin: 01/25/17 05:36 Dose: 5,000 units Ceftriaxone Sodium 1,000 mg/ (Sodium Chloride) 50 mls @ 200 mls/hr IVPB Q24H [facility] Last Admin: 01/24/17 21:33 Dose: 200 mls/hr Azithromycin 500 mg/ Sodium (Chloride) 250 mls @ 250 mls/hr IVPB 1500 [facility] Last Admin: 01/24/17 14:53 Dose: 250 mls/hr Metoprolol Tartrate (Lopressor Tab*) 100 mg PO BID WITH MEALS [facility] Last Admin: 01/25/17 08:49 Dose: 100 mg Prednisone (Deltasone Tab*) 40 mg PO DAILY [facility] Last Admin: 01/25/17 08:49 Dose: 40 mg Vital Signs 01/24/17 01/24/17 01/24/17 11:44 15:26 15:58 Temperature 97.2 F 97.4 F Pulse Rate 67 79 71 Respiratory 16 24 18 Rate Blood Pressure 130/66 144/64 (mmHg) O2 Sat by Pulse 95 96 95 Oximetry 01/24/17 01/24/17 01/24/17 17:26 19:06 20:00 Temperature 97.3 F Pulse Rate 70 63 71 Respiratory 22 24 20 Rate Blood Pressure 139/55 (mmHg) O2 Sat by Pulse 96 98 95 Oximetry 01/25/17 01/25/17 01/25/17 00:46 07:26 08:00 Temperature 97.8 F Pulse Rate 67 82 Respiratory 16 14 32 Rate Blood Pressure 145/60 155/61 (mmHg) O2 Sat by Pulse 95 95 Oximetry Oxygen Devices in Use Now: Nasal Cannula - 4L NC Appearance: obese female A+Ox3 in NAD sitting up in a chair Eyes: No Scleral Icterus, PERRLA Ears/Nose/Mouth/Throat: NL Teeth, Lips, Gums Neck: NL Appearance and Movements; NL JVP Respiratory: Symmetrical Chest Expansion and Respiratory Effort, - - expiratory wheezes noted throughout, with scattered rhonchi, no accessory muscle use. Cardiovascular: NL Sounds; No Murmurs; No JVD, RRR, No Edema Abdominal: NL Sounds; No Tenderness; No Distention, - - obese Extremities: No Edema, No Clubbing, Cyanosis Skin: No Rash or Ulcers, No Nodules or Sclerosis Neurological: Alert and Oriented x 3, NL Sensation, NL Gait, NL Muscle Strength and Tone Lines/Tubes/Other Access: Clean, Dry and Intact Peripheral IV Nutrition: Taking PO's Result Diagrams: 01/25/17 05:43 01/25/17 05:43 Additional Lab and Data: Lab Results 01/21/17 01/21/17 01/21/17 Range/Units 12:17 12:17 12:17 WBC 11.2 H (3.5-10.8) 10^3/ul RBC 4.69 (4.0-5.4) 10^6/ul Hgb 12.9 (12.0-16.0) g/dl Hct 40 (35-47) % MCV 85 (80-97) fL MCH 27 (27-31) pg MCHC 33 (31-36) g/dl RDW 16 H (10.5-15) % Plt Count (150-450) 10^3/ul MPV Not Reportable Neut % (Auto) 76.3 (38-83) % Lymph % (Auto) 10.7 L (25-47) % [place] % (Auto) 11.8 H (1-9) % Eos % (Auto) 0.2 (0-6) % Baso % (Auto) 1.0 (0-2) % Absolute Neuts (auto) 8.6 H (1.5-7.7) 10^3/ul Absolute Lymphs (auto) 1.2 (1.0-4.8) 10^3/ul Absolute Monos (auto) 1.3 H (0-0.8) 10^3/ul Absolute Eos (auto) 0 (0-0.6) 10^3/ul Absolute Basos (auto) 0.1 (0-0.2) 10^3/ul Absolute Nucleated RBC 0.02 10^3/ul Nucleated RBC % 0.2 INR (Anticoag Therapy) 1.12 H (0.89-1.11) APTT 20.0 L (26.0-36.3) seconds Sodium 130 L (133-145) mmol/L Potassium 3.3 L (3.5-5.0) mmol/L Chloride 91 L (101-111) mmol/L Carbon Dioxide 30 (22-32) mmol/L Anion Gap 9 (2-11) mmol/L BUN 12 (6-24) mg/dL Creatinine 0.85 (0.51-0.95) mg/dL Est GFR ( Amer) 87.7 (>60) Est GFR (Non-Af Amer) 68.2 (>60) BUN/Creatinine Ratio 14.1 (8-20) Glucose 129 H (70-100) mg/dL Lactic Acid (0.5-2.0) mmol/L Calcium 9.3 (8.6-10.3) mg/dL Total Bilirubin 1.00 (0.2-1.0) mg/dL AST 30 (13-39) U/L ALT 18 (7-52) U/L Alkaline Phosphatase 70 (34-104) U/L Troponin I 0.01 (<0.04) ng/mL B-Natriuretic Peptide ( - 100) pg/mL Total Protein 8.3 (6.4-8.9) g/dL Albumin 3.5 (3.2-5.2) g/dL Globulin 4.8 H (2-4) g/dL Albumin/Globulin Ratio 0.7 L (1-3) Influenza A (Rapid) (Negative) Influenza B (Rapid) (Negative) 01/21/17 01/21/17 01/21/17 Range/Units 12:17 12:17 12:37 WBC (3.5-10.8) 10^3/ul RBC (4.0-5.4) 10^6/ul Hgb (12.0-16.0) g/dl Hct (35-47) % MCV (80-97) fL MCH (27-31) pg MCHC (31-36) g/dl RDW (10.5-15) % Plt Count (150-450) 10^3/ul MPV Neut % (Auto) (38-83) % Lymph % (Auto) (25-47) % [place] % (Auto) (1-9) % Eos % (Auto) (0-6) % Baso % (Auto) (0-2) % Absolute Neuts (auto) (1.5-7.7) 10^3/ul Absolute Lymphs (auto) (1.0-4.8) 10^3/ul Absolute Monos (auto) (0-0.8) 10^3/ul Absolute Eos (auto) (0-0.6) 10^3/ul Absolute Basos (auto) (0-0.2) 10^3/ul Absolute Nucleated RBC 10^3/ul Nucleated RBC % INR (Anticoag Therapy) (0.89-1.11) APTT (26.0-36.3) seconds Sodium (133-145) mmol/L Potassium (3.5-5.0) mmol/L Chloride (101-111) mmol/L Carbon Dioxide (22-32) mmol/L Anion Gap (2-11) mmol/L BUN (6-24) mg/dL Creatinine (0.51-0.95) mg/dL Est GFR ( Amer) (>60) Est GFR (Non-Af Amer) (>60) BUN/Creatinine Ratio (8-20) Glucose (70-100) mg/dL Lactic Acid 2.2 H* (0.5-2.0) mmol/L Calcium (8.6-10.3) mg/dL Total Bilirubin (0.2-1.0) mg/dL AST (13-39) U/L ALT (7-52) U/L Alkaline Phosphatase (34-104) U/L Troponin I (<0.04) ng/mL B-Natriuretic Peptide 84 ( - 100) pg/mL Total Protein (6.4-8.9) g/dL Albumin (3.2-5.2) g/dL Globulin (2-4) g/dL Albumin/Globulin Ratio (1-3) Influenza A (Rapid) Negative (Negative) Influenza B (Rapid) Negative (Negative) Microbiology and Other Data: Microbiology 01/21/17 21:40 Legionella Urinary Antigen - Final Urine Negative Legionella Streptococcus pneumoniae Ag Screen - Final Negative S. pneumo Antigen 01/21/17 18:28 Nasal Screen MRSA (PCR)(ADELA) - Final Nasal Mrsa Negative Assess/Plan/Problems-Billing Assessment: Ms. Nguyễn is a 61 yo female with a PMH of intellectual disability, asthma, chronic LE edema and HTN who presented to the emergency department on with c/o sob, cough, fever found to have severe bronchospasm secondary to pneumonia. - Patient Problems (1) Pneumonia Comment: - Met sepsis criteria today with increase RR and leukocytosis - but think WBCs are 2nd to steroid therapy and pt has increased RR when ambulating - low suspicion for sepsis - afebrile and clinically the patient feels better ( however she always states she feels well) plan to repeat chest xray and check lactic - Acute hypoxic hypercarbic respiratory failure secondary to right basilar pneumonia - compensated on ABG with normal pH. Clinically improving, but slowly to improve with continued increased oxygen requirements- on 4-5L with O2 sats 93 %, removed oxygen today and pt desated to 75%, continued wheezing. continue aggressive pulm tolieting with attempt to wean oxygen as tolerates. - negtaive influenza - negative urine antigens legionella & s. pneum - Blood cx negative so far - continue ceftriaxone (last dose today) and azithro (switch to PO with 3 more doses) - start Dulera INH and Duo neb Q4hrs scheduled for continued wheezing - continue Prednisone 40 mg daily, most likely will need to go on a taper at D/ C. - should have outpt sleep study and referral to Dr. Paige - pt has reported "bad asthma at her baseline" and should have close f/u and PFT testing - most likely will need oxygen at discharge and will need nebulizer machine, case management following (2) HTN (hypertension) Comment: - Normotensive. Continue Metoprolol and norvasc with hold parameters (3) DVT prophylaxis Comment: HSQ (4) Full code status Status and Disposition: Inpatient with acute respiratory hypercarbic hypoxic respiratory failure secondary to pneumonia and bronchospasms. Home when medically stable.
[2017-01-25] MEDS: Albuterol/Ipratropium NEB.SOL* Albuterol 2.5 MG/Ipratropium 0.5 MG 3 ML INH SCH ×4 (10:50→23:29)
--- NOTE | 2017-01-25 11:29 | RAD ---
Indication: Hypoxia. 2 views of the chest are reviewed and compared to previous exam dated January 21, 2017. Increasing infiltrates are noted extending the right upper lobe, right lower lobe and left lung field. This may represent worsening pneumonia or edema. IMPRESSION: Increasing right basilar, right upper lobe airspace disease suspicious for pneumonia.
[2017-01-25 13:20] LABS: Urine Bacteria Absent (Absent); Urine Bilirubin Negative (Negative); Urine Glucose Negative (Negative); Urine Nitrite Negative (Negative)
[2017-01-25] MEDS: Azithromycin TAB* 250 MG PO SCH (16:09)
[2017-01-25] MEDS: Mometasone/Formoter 200/5 MDI INH SCH (19:44)
[2017-01-25] MEDS: cefTRIAXone VIAL(*) 1,000 MG in NS 0.9% 50 ML* 50 ML IVPB SCH (19:57)
[2017-01-26] MEDS: Albuterol/Ipratropium NEB.SOL* Albuterol 2.5 MG/Ipratropium 0.5 MG 3 ML INH SCH ×4 (03:46→18:51)
[2017-01-26] MEDS: Heparin VIAL(*) 5000 UNITS/ML VIAL (FIVE THOUSAND) SUBCUT SCH ×3 (05:25→22:39)
[2017-01-26 06:29] LABS: Hematocrit 40 % (35-47); Mean Corpuscular HGB Conc 32 g/dl (31-36); Mean Corpuscular Hemoglobin 27 pg (27-31); Mean Corpuscular Volume 84 fL (80-97); Mean Platelet Volume 8 um3 (7.4-10.4); Red Blood Count 4.79 10^6/ul (4.0-5.4); Red Cell Distribution Width 16 % (10.5-15); White Blood Count 10.4 10^3/ul (3.5-10.8)
[2017-01-26 06:42] LABS: Add Diff/Slide Review? Slide Review Added; Comments Flag Yes
[2017-01-26 06:48] LABS: BUN/Creatinine Ratio 17.5 (8-20); Calcium 9.1 mg/dL (8.6-10.3); EGFR African American 139.1 (>60); EGFR Non-African American 108.2 (>60); Potassium 3.8 mmol/L (3.5-5.0)
[2017-01-26] MEDS: Mometasone/Formoter 200/5 MDI INH SCH ×3 (08:05→20:39)
[2017-01-26] MEDS: amLODIPine TAB* 5 MG PO SCH (09:16)
[2017-01-26] MEDS: predniSONE TAB* 20 MG PO SCH (09:17)
[2017-01-26] MEDS: Azithromycin TAB* 250 MG PO SCH (09:17)
[2017-01-26] MEDS: Metoprolol Tartrate TAB* 100 MG TAB PO SCH ×2 (09:17→17:23)
[2017-01-26] MEDS ORDERED: Albuterol/Ipratropium NEB.SOL* Albuterol 2.5 MG/Ipratropium 0.5 MG 3 ML INH SCH (10:00)
--- NOTE | 2017-01-26 10:18 | PN ---
Subjective Date of Service: 01/26/17 Interval History: Patient seen and examined at bedside. She reports, "I'm feeling great and ready to go home." She denies CP, SOB, wheezing, though the patient is audibly wheezing while speaking. Denies fever/chills, abd pain, n/v. She is sitting up in the chair, watching TV. She was not previously on chronic O2 and is currently requiring 5 Lnc. Family History: Unchanged from Admission Social History: Unchanged from Admission Past Medical History: Unchanged from Admission Objective Active Medications: Acetaminophen (Tylenol Tab*) 650 mg PO Q4H PRN PRN Reason: FEVER/PAIN Albuterol (Ventolin Hfa Inhaler*) 2 puff INH Q6H PRN PRN Reason: SOB/WHEEZING Last Admin: 01/25/17 22:30 Dose: 2 puff Albuterol/Ipratropium (Duoneb Neb.Gloria*) 1 neb INH 0100,0700,1300,1900 [facility] Amlodipine Besylate (Norvasc Tab*) 10 mg PO DAILY [facility] Last Admin: 01/26/17 09:16 Dose: 10 mg Azithromycin (Zithromax Tab*) 250 mg PO DAILY [facility] Stop: 01/27/17 09:01 Last Admin: 01/26/17 09:17 Dose: 250 mg Heparin Sodium (Porcine) (Heparin Vial(*)) 5,000 units SUBCUT Q8HR [facility] Last Admin: 01/26/17 05:25 Dose: 5,000 units Metoprolol Tartrate (Lopressor Tab*) 100 mg PO BID WITH MEALS [facility] Last Admin: 01/26/17 09:17 Dose: 100 mg Mometasone Furoate/Formoterol Fumar (Dulera 200/5 Mdi*) 2 puff INH BID [facility] Last Admin: 01/26/17 08:05 Dose: 2 puff Prednisone (Deltasone Tab*) 40 mg PO DAILY [facility] Last Admin: 01/26/17 09:17 Dose: 40 mg Vital Signs 01/25/17 01/25/17 01/25/17 11:31 15:19 19:44 Temperature 97.4 F Pulse Rate 63 73 72 Respiratory 14 21 18 Rate Blood Pressure 135/64 159/73 (mmHg) O2 Sat by Pulse 91 97 99 Oximetry 01/25/17 01/25/17 01/25/17 19:49 20:00 23:45 Temperature 97.4 F Pulse Rate 74 81 Respiratory 18 15 15 Rate Blood Pressure 151/70 (mmHg) O2 Sat by Pulse 99 97 Oximetry 01/26/17 01/26/17 07:58 08:14 Temperature 97.6 F Pulse Rate 95 79 Respiratory 20 18 Rate Blood Pressure 163/75 (mmHg) O2 Sat by Pulse 93 95 Oximetry Oxygen Devices in Use Now: Nasal Cannula - 5L NC Appearance: Female patient, OOB to chair, in NAD Eyes: PERRLA Ears/Nose/Mouth/Throat: Clear Oropharnyx, Mucous Membranes Moist Neck: NL Appearance and Movements; NL JVP Respiratory: Symmetrical Chest Expansion and Respiratory Effort, - - expiratory wheezing in all lung rayo, scattered rhonchi Cardiovascular: NL Sounds; No Murmurs; No JVD, RRR, No Edema Abdominal: NL Sounds; No Tenderness; No Distention Extremities: No Edema, No Clubbing, Cyanosis Skin: No Rash or Ulcers Neurological: Alert and Oriented x 3, NL Gait, NL Muscle Strength and Tone Lines/Tubes/Other Access: Clean, Dry and Intact Peripheral IV Nutrition: Taking PO's Result Diagrams: 01/26/17 06:05 01/26/17 06:05 Additional Lab and Data: Lab Results 01/21/17 01/21/17 01/21/17 Range/Units 12:17 12:17 12:17 WBC 11.2 H (3.5-10.8) 10^3/ul RBC 4.69 (4.0-5.4) 10^6/ul Hgb 12.9 (12.0-16.0) g/dl Hct 40 (35-47) % MCV 85 (80-97) fL MCH 27 (27-31) pg MCHC 33 (31-36) g/dl RDW 16 H (10.5-15) % Plt Count (150-450) 10^3/ul MPV Not Reportable Neut % (Auto) 76.3 (38-83) % Lymph % (Auto) 10.7 L (25-47) % [place] % (Auto) 11.8 H (1-9) % Eos % (Auto) 0.2 (0-6) % Baso % (Auto) 1.0 (0-2) % Absolute Neuts (auto) 8.6 H (1.5-7.7) 10^3/ul Absolute Lymphs (auto) 1.2 (1.0-4.8) 10^3/ul Absolute Monos (auto) 1.3 H (0-0.8) 10^3/ul Absolute Eos (auto) 0 (0-0.6) 10^3/ul Absolute Basos (auto) 0.1 (0-0.2) 10^3/ul Absolute Nucleated RBC 0.02 10^3/ul Nucleated RBC % 0.2 INR (Anticoag Therapy) 1.12 H (0.89-1.11) APTT 20.0 L (26.0-36.3) seconds Sodium 130 L (133-145) mmol/L Potassium 3.3 L (3.5-5.0) mmol/L Chloride 91 L (101-111) mmol/L Carbon Dioxide 30 (22-32) mmol/L Anion Gap 9 (2-11) mmol/L BUN 12 (6-24) mg/dL Creatinine 0.85 (0.51-0.95) mg/dL Est GFR ( Amer) 87.7 (>60) Est GFR (Non-Af Amer) 68.2 (>60) BUN/Creatinine Ratio 14.1 (8-20) Glucose 129 H (70-100) mg/dL Lactic Acid (0.5-2.0) mmol/L Calcium 9.3 (8.6-10.3) mg/dL Total Bilirubin 1.00 (0.2-1.0) mg/dL AST 30 (13-39) U/L ALT 18 (7-52) U/L Alkaline Phosphatase 70 (34-104) U/L Troponin I 0.01 (<0.04) ng/mL B-Natriuretic Peptide ( - 100) pg/mL Total Protein 8.3 (6.4-8.9) g/dL Albumin 3.5 (3.2-5.2) g/dL Globulin 4.8 H (2-4) g/dL Albumin/Globulin Ratio 0.7 L (1-3) Influenza A (Rapid) (Negative) Influenza B (Rapid) (Negative) 01/21/17 01/21/17 01/21/17 Range/Units 12:17 12:17 12:37 WBC (3.5-10.8) 10^3/ul RBC (4.0-5.4) 10^6/ul Hgb (12.0-16.0) g/dl Hct (35-47) % MCV (80-97) fL MCH (27-31) pg MCHC (31-36) g/dl RDW (10.5-15) % Plt Count (150-450) 10^3/ul MPV Neut % (Auto) (38-83) % Lymph % (Auto) (25-47) % [place] % (Auto) (1-9) % Eos % (Auto) (0-6) % Baso % (Auto) (0-2) % Absolute Neuts (auto) (1.5-7.7) 10^3/ul Absolute Lymphs (auto) (1.0-4.8) 10^3/ul Absolute Monos (auto) (0-0.8) 10^3/ul Absolute Eos (auto) (0-0.6) 10^3/ul Absolute Basos (auto) (0-0.2) 10^3/ul Absolute Nucleated RBC 10^3/ul Nucleated RBC % INR (Anticoag Therapy) (0.89-1.11) APTT (26.0-36.3) seconds Sodium (133-145) mmol/L Potassium (3.5-5.0) mmol/L Chloride (101-111) mmol/L Carbon Dioxide (22-32) mmol/L Anion Gap (2-11) mmol/L BUN (6-24) mg/dL Creatinine (0.51-0.95) mg/dL Est GFR ( Amer) (>60) Est GFR (Non-Af Amer) (>60) BUN/Creatinine Ratio (8-20) Glucose (70-100) mg/dL Lactic Acid 2.2 H* (0.5-2.0) mmol/L Calcium (8.6-10.3) mg/dL Total Bilirubin (0.2-1.0) mg/dL AST (13-39) U/L ALT (7-52) U/L Alkaline Phosphatase (34-104) U/L Troponin I (<0.04) ng/mL B-Natriuretic Peptide 84 ( - 100) pg/mL Total Protein (6.4-8.9) g/dL Albumin (3.2-5.2) g/dL Globulin (2-4) g/dL Albumin/Globulin Ratio (1-3) Influenza A (Rapid) Negative (Negative) Influenza B (Rapid) Negative (Negative) Microbiology and Other Data: Microbiology 01/21/17 21:40 Legionella Urinary Antigen - Final Urine Negative Legionella Streptococcus pneumoniae Ag Screen - Final Negative S. pneumo Antigen 01/21/17 18:28 Nasal Screen MRSA (PCR)([facility]) - Final Nasal Mrsa Negative Assess/Plan/Problems-Billing Assessment: Ms. Nguyễn is a 61 yo female with a PMH of intellectual disability, asthma, chronic LE edema and HTN who presented to the emergency department on with c/o sob, cough, fever found to have severe bronchospasm secondary to pneumonia. - Patient Problems (1) Acute respiratory failure with hypoxia and hypercapnia Code(s): J96.01 - ACUTE RESPIRATORY FAILURE WITH HYPOXIA; J96.02 - ACUTE RESPIRATORY FAILURE WITH HYPERCAPNIA Comment: Acute hypoxic hypercarbic respiratory failure secondary to right basilar pneumonia - compensated on ABG with normal pH. Clinically improving, but slow to improve with continued increased oxygen requirements. Patient is on 4-5L with O2 sats 93%. Patient desaturated to 75% on RA. Will consider pulmonary consult if patient unable to be weaned down or off O2 prior to d/c. (2) Pneumonia Code(s): J18.9 - PNEUMONIA, UNSPECIFIED ORGANISM Comment: WBC normal today, but still with increased RR with activity. Patient is afebrile and clinically feels better (though pt always states she feels well). Repeat CXR yesterday shows increasing right basilar, right upper lobe airpsace disease. Continue aggressive pulmonary toileting with attempt to wean oxygen as tolerates. Influenza, legionella urine antigen, and s. pneumoniae urine antigens all negative. Blood cx negative so far. Ceftriaxone completed, continue azithromycin (now PO with 3 more doses). Continue Dulera INH and Duo neb Q4hrs scheduled for continued wheezing. Continue Prednisone 40 mg daily, most likely will need to go on a taper at D/C. Should have outpt sleep study and referral to Dr. Paige - pt has reported "bad asthma at her baseline" and should have close f/u and PFT testing. Most likely will need oxygen at discharge and will need nebulizer machine, case management following. (3) HTN (hypertension) Code(s): I10 - ESSENTIAL (PRIMARY) HYPERTENSION Comment: Mostly normotensive. Continue metoprolol and amlodipine with hold parameters. (4) DVT prophylaxis Code(s): [id number] - Comment: SQ heparin (5) Full code status Code(s): Z78.9 - OTHER SPECIFIED HEALTH STATUS Status and Disposition: Inpatient with acute respiratory hypercarbic hypoxic respiratory failure secondary to pneumonia and bronchospasms. Home when medically stable.
[2017-01-26] MEDS: Nystatin SUSPENSION* 100000 UNITS/ML 5 ML UDC PO SCH ×2 (17:23→22:39)
[2017-01-27] MEDS: Albuterol/Ipratropium NEB.SOL* Albuterol 2.5 MG/Ipratropium 0.5 MG 3 ML INH SCH ×4 (01:49→20:00)
[2017-01-27] MEDS: Heparin VIAL(*) 5000 UNITS/ML VIAL (FIVE THOUSAND) SUBCUT SCH ×3 (06:50→20:42)
[2017-01-27] MEDS: Mometasone/Formoter 200/5 MDI INH SCH ×2 (08:02→20:00)
[2017-01-27] MEDS: amLODIPine TAB* 5 MG PO SCH (10:10)
[2017-01-27] MEDS: predniSONE TAB* 20 MG PO SCH (10:11)
[2017-01-27] MEDS: Metoprolol Tartrate TAB* 100 MG TAB PO SCH ×2 (10:11→16:31)
[2017-01-27] MEDS: Azithromycin TAB* 250 MG PO SCH (10:11)
[2017-01-27] MEDS: Nystatin SUSPENSION* 100000 UNITS/ML 5 ML UDC PO SCH ×4 (10:12→20:42)
--- NOTE | 2017-01-27 10:22 | PN ---
Subjective Date of Service: 01/27/17 Interval History: Patient seen and examined at bedside. She states, "I'm feeling fine" and is eager to go home. Denies CP, SOB, abd pain, n/v. and mother in law are in room at bedside. Patient denies fever/chills, CP, SOB, abd pain, n/v. We discussed patient having a pulmonary consult prior to discharge, as she is still requiring O2. Patient will likely need to be discharged on home O2. Family History: Unchanged from Admission Social History: Unchanged from Admission Past Medical History: Unchanged from Admission Objective Active Medications: Acetaminophen (Tylenol Tab*) 650 mg PO Q4H PRN PRN Reason: FEVER/PAIN Albuterol (Ventolin Hfa Inhaler*) 2 puff INH Q6H PRN PRN Reason: SOB/WHEEZING Last Admin: 01/25/17 22:30 Dose: 2 puff Albuterol/Ipratropium (Duoneb Neb.Gloria*) 1 neb INH 0100,0700,1300,1900 [facility] Last Admin: 01/27/17 08:01 Dose: 1 neb Amlodipine Besylate (Norvasc Tab*) 10 mg PO DAILY [facility] Last Admin: 01/27/17 10:10 Dose: 10 mg Heparin Sodium (Porcine) (Heparin Vial(*)) 5,000 units SUBCUT Q8HR [facility] Last Admin: 01/27/17 06:50 Dose: 5,000 units Metoprolol Tartrate (Lopressor Tab*) 100 mg PO BID WITH MEALS [facility] Last Admin: 01/27/17 10:11 Dose: 100 mg Mometasone Furoate/Formoterol Fumar (Dulera 200/5 Mdi*) 2 puff INH BID [facility] Last Admin: 01/27/17 08:02 Dose: 2 puff Nystatin (Nystatin Suspension*) 500,000 units PO QID [facility] Stop: 02/02/17 16:51 Last Admin: 01/27/17 10:12 Dose: 500,000 units Prednisone (Deltasone Tab*) 40 mg PO DAILY [facility] Last Admin: 01/27/17 10:11 Dose: 40 mg Vital Signs 01/26/17 01/26/17 01/26/17 13:20 15:32 16:17 Temperature 97.4 F Pulse Rate 70 66 Respiratory 18 18 Rate Blood Pressure 143/65 (mmHg) O2 Sat by Pulse 95 97 97 Oximetry 01/26/17 01/26/17 01/26/17 16:53 18:52 22:40 Temperature Pulse Rate 72 Respiratory 16 22 Rate Blood Pressure (mmHg) O2 Sat by Pulse 97 95 Oximetry 01/26/17 01/27/17 01/27/17 23:34 08:00 08:02 Temperature 98.2 F Pulse Rate 78 82 Respiratory 16 22 18 Rate Blood Pressure 140/55 (mmHg) O2 Sat by Pulse 97 97 Oximetry 01/27/17 09:51 Temperature Pulse Rate 87 Respiratory 22 Rate Blood Pressure 157/64 (mmHg) O2 Sat by Pulse 97 Oximetry Oxygen Devices in Use Now: Nasal Cannula - 3L Appearance: Female patient, lying in bed, in NAD Eyes: PERRLA Ears/Nose/Mouth/Throat: Clear Oropharnyx, Mucous Membranes Moist Neck: NL Appearance and Movements; NL JVP Respiratory: Symmetrical Chest Expansion and Respiratory Effort, - - expiratory wheezing Cardiovascular: NL Sounds; No Murmurs; No JVD, RRR Abdominal: NL Sounds; No Tenderness; No Distention Extremities: No Edema Skin: No Rash or Ulcers Neurological: Alert and Oriented x 3 Lines/Tubes/Other Access: Clean, Dry and Intact Peripheral IV Nutrition: Taking PO's Result Diagrams: 01/26/17 06:05 01/26/17 06:05 Additional Lab and Data: Lab Results 01/21/17 01/21/17 01/21/17 Range/Units 12:17 12:17 12:17 WBC 11.2 H (3.5-10.8) 10^3/ul RBC 4.69 (4.0-5.4) 10^6/ul Hgb 12.9 (12.0-16.0) g/dl Hct 40 (35-47) % MCV 85 (80-97) fL MCH 27 (27-31) pg MCHC 33 (31-36) g/dl RDW 16 H (10.5-15) % Plt Count (150-450) 10^3/ul MPV Not Reportable Neut % (Auto) 76.3 (38-83) % Lymph % (Auto) 10.7 L (25-47) % Mckean % (Auto) 11.8 H (1-9) % Eos % (Auto) 0.2 (0-6) % Baso % (Auto) 1.0 (0-2) % Absolute Neuts (auto) 8.6 H (1.5-7.7) 10^3/ul Absolute Lymphs (auto) 1.2 (1.0-4.8) 10^3/ul Absolute Monos (auto) 1.3 H (0-0.8) 10^3/ul Absolute Eos (auto) 0 (0-0.6) 10^3/ul Absolute Basos (auto) 0.1 (0-0.2) 10^3/ul Absolute Nucleated RBC 0.02 10^3/ul Nucleated RBC % 0.2 INR (Anticoag Therapy) 1.12 H (0.89-1.11) APTT 20.0 L (26.0-36.3) seconds Sodium 130 L (133-145) mmol/L Potassium 3.3 L (3.5-5.0) mmol/L Chloride 91 L (101-111) mmol/L Carbon Dioxide 30 (22-32) mmol/L Anion Gap 9 (2-11) mmol/L BUN 12 (6-24) mg/dL Creatinine 0.85 (0.51-0.95) mg/dL Est GFR ( Amer) 87.7 (>60) Est GFR (Non-Af Amer) 68.2 (>60) BUN/Creatinine Ratio 14.1 (8-20) Glucose 129 H (70-100) mg/dL Lactic Acid (0.5-2.0) mmol/L Calcium 9.3 (8.6-10.3) mg/dL Total Bilirubin 1.00 (0.2-1.0) mg/dL AST 30 (13-39) U/L ALT 18 (7-52) U/L Alkaline Phosphatase 70 (34-104) U/L Troponin I 0.01 (<0.04) ng/mL B-Natriuretic Peptide ( - 100) pg/mL Total Protein 8.3 (6.4-8.9) g/dL Albumin 3.5 (3.2-5.2) g/dL Globulin 4.8 H (2-4) g/dL Albumin/Globulin Ratio 0.7 L (1-3) Influenza A (Rapid) (Negative) Influenza B (Rapid) (Negative) 01/21/17 01/21/17 01/21/17 Range/Units 12:17 12:17 12:37 WBC (3.5-10.8) 10^3/ul RBC (4.0-5.4) 10^6/ul Hgb (12.0-16.0) g/dl Hct (35-47) % MCV (80-97) fL MCH (27-31) pg MCHC (31-36) g/dl RDW (10.5-15) % Plt Count (150-450) 10^3/ul MPV Neut % (Auto) (38-83) % Lymph % (Auto) (25-47) % Mckean % (Auto) (1-9) % Eos % (Auto) (0-6) % Baso % (Auto) (0-2) % Absolute Neuts (auto) (1.5-7.7) 10^3/ul Absolute Lymphs (auto) (1.0-4.8) 10^3/ul Absolute Monos (auto) (0-0.8) 10^3/ul Absolute Eos (auto) (0-0.6) 10^3/ul Absolute Basos (auto) (0-0.2) 10^3/ul Absolute Nucleated RBC 10^3/ul Nucleated RBC % INR (Anticoag Therapy) (0.89-1.11) APTT (26.0-36.3) seconds Sodium (133-145) mmol/L Potassium (3.5-5.0) mmol/L Chloride (101-111) mmol/L Carbon Dioxide (22-32) mmol/L Anion Gap (2-11) mmol/L BUN (6-24) mg/dL Creatinine (0.51-0.95) mg/dL Est GFR ( Amer) (>60) Est GFR (Non-Af Amer) (>60) BUN/Creatinine Ratio (8-20) Glucose (70-100) mg/dL Lactic Acid 2.2 H* (0.5-2.0) mmol/L Calcium (8.6-10.3) mg/dL Total Bilirubin (0.2-1.0) mg/dL AST (13-39) U/L ALT (7-52) U/L Alkaline Phosphatase (34-104) U/L Troponin I (<0.04) ng/mL B-Natriuretic Peptide 84 ( - 100) pg/mL Total Protein (6.4-8.9) g/dL Albumin (3.2-5.2) g/dL Globulin (2-4) g/dL Albumin/Globulin Ratio (1-3) Influenza A (Rapid) Negative (Negative) Influenza B (Rapid) Negative (Negative) Microbiology and Other Data: Microbiology 01/21/17 21:40 Legionella Urinary Antigen - Final Urine Negative Legionella Streptococcus pneumoniae Ag Screen - Final Negative S. pneumo Antigen 01/21/17 18:28 Nasal Screen MRSA (PCR)(ADELA) - Final Nasal Mrsa Negative Assess/Plan/Problems-Billing Assessment: Ms. Nguyễn is a 61 yo female with a PMH of intellectual disability, asthma, chronic LE edema and HTN who presented to the emergency department on with c/o sob, cough, fever found to have severe bronchospasm secondary to pneumonia. - Patient Problems (1) Acute respiratory failure with hypoxia and hypercapnia Code(s): J96.01 - ACUTE RESPIRATORY FAILURE WITH HYPOXIA; J96.02 - ACUTE RESPIRATORY FAILURE WITH HYPERCAPNIA Comment: Acute hypoxic hypercarbic respiratory failure secondary to right basilar pneumonia - compensated on ABG with normal pH. Clinically improving, but slow to improve with continued increased oxygen requirements. Patient has been weaned down to 3Lnc. Patient desaturated to 75% on RA. Will likely need home O2. Pulmonary consult pending. (2) Pneumonia Code(s): J18.9 - PNEUMONIA, UNSPECIFIED ORGANISM Comment: WBC normal today, but still with increased RR with activity. Patient is afebrile and clinically feels better (though pt always states she feels well). Repeat CXR yesterday shows increasing right basilar, right upper lobe airpsace disease. Continue aggressive pulmonary toileting with attempt to wean oxygen as tolerates. Influenza, legionella urine antigen, and s. pneumoniae urine antigens all negative. Blood cx negative so far. Ceftriaxone completed, continue azithromycin (today is last dose). Continue Dulera INH and Duo neb Q4hrs scheduled for continued wheezing. Continue Prednisone 40 mg daily, most likely will need to go on a taper at D/C. Should have outpt sleep study and referral to Dr. Paige - pt has reported "bad asthma at her baseline" and should have close f/u and PFT testing. Most likely will need oxygen at discharge and will need nebulizer machine, case management following. (3) HTN (hypertension) Code(s): I10 - ESSENTIAL (PRIMARY) HYPERTENSION Comment: Mostly normotensive. Continue metoprolol and amlodipine with hold parameters. (4) DVT prophylaxis Code(s): UVD8747 - Comment: SQ heparin (5) Full code status Code(s): Z78.9 - OTHER SPECIFIED HEALTH STATUS Status and Disposition: Inpatient with acute respiratory hypercarbic hypoxic respiratory failure secondary to pneumonia and bronchospasms. Home when medically stable.
--- NOTE | 2017-01-27 21:17 | CONS ---
PULMONARY CONSULTATION REPORT: DATE OF CONSULT: 01/27/17 CONSULTATION REQUESTED BY: Anh Wong NP REASON FOR CONSULT: Evaluation of shortness of breath, hypoxemia, and pneumonia. HISTORY OF PRESENT ILLNESS: The patient is a 61-year-old female with mild intellectual delay. The patient is a poor historian. The patient was not able to provide much details about her health history. Information obtained from review of medical records and her current admission records. The patient was admitted for evaluation of worsening cough and fevers over the past 3 weeks. Cough has been mostly nonproductive in nature. The patient was noted to be having T-max of 101.4 in the emergency room. The patient had further evaluation with chest x-ray which was repeated on January 25. I have personally reviewed admission chest x-ray and also, the chest x-ray from 01/25/17. The patient noted to have right lower lobe patchy consolidation on admission x-ray which has progressed slightly to involve upper lung zone on the repeat chest x- ray. The patient without significant white count. She did have left shift on admission. The patient's blood gas showed evidence of mild respiratory acidosis with pH of 7.36, PCO2 of 50, PO2 of 57, bicarb of 26.2 with O2 sat of 92.3% on 5 L O2. The patient is being treated with Rocephin and Zithromax. She has completed Rocephin and is being continued on Zithromax. She is needing O2 supplementation at 3 L per minute. Overall looks clinically stable. PAST MEDICAL HISTORY: 1. Hypertension. 2. Intellectual delay. 3. Chronic bilateral lower extremity edema. 4. Congenital hearing loss. MEDICATIONS: 1. Albuterol. 2. Norvasc. 3. Hydrochlorothiazide. 4. Metoprolol. ALLERGIES: CODEINE. FAMILY HISTORY: History of diabetes and heart disease in the family. SOCIAL HISTORY: Denies tobacco, alcohol, or drug abuse. She lives with her . REVIEW OF SYSTEMS: Limited. Once again, all the pertinent positives and negatives are reported in HPI. PHYSICAL EXAM: The patient in bed, in no apparent distress. Alert, awake, and oriented x3. Answers questions appropriately. Vital Signs: Temperature 98.2, pulse 78 beats per minute, respirations 16 per minute, O2 sat 97%, blood pressure 140/55. HEENT: Pupils equal, reactive to light. Mucous membranes moist. Neck: Supple. No JVD. Respiratory: Scattered wheezes bilaterally, crackles at bases. Cardiovascular: Regular rate and rhythm. No murmurs. Abdomen: Obese. Bowel sounds present. Extremities: 2+ edema bilaterally. Skin: No cyanosis or clubbing. No rash or bruise. Neurologic: No focal deficits. DIAGNOSTIC STUDIES/LAB DATA: White count 10.4, hemoglobin 13.0, hematocrit 40, platelet count 200. Sodium 138, potassium 3.8, chloride 98, bicarb 35, BUN 10, creatinine 0.57, glucose 101, calcium 9.1. Influenza A and B negative. Chest x-ray as described above in HPI. IMPRESSION AND RECOMMENDATIONS: 61-year-old obese female with intellectual disability, history of asthma, chronic lower extremity edema, and hypertension, admitted with worsening shortness of breath, cough, fever, found to have right- sided pneumonia and bronchospasm. 1. Right-sided community-acquired pneumonia with suspicion for aspiration pneumonia. 2. Acute asthma exacerbation. 3. Acute respiratory failure with hypoxemia and hypercapnia. The patient improving currently, requiring O2 supplementation at 3 L currently. Continue to taper off FiO2 as tolerated. The patient completed ceftriaxone and Zithromax. Reactive airways disease/asthma is improving. Continue with Dulera while here. Continue with tapering dose of prednisone. Hypercapnia, concerning for possible underlying sleep apnea. Patients body habitus concerning for sleep apnea. Will schedule the patient for sleep study as outpatient. The patient will also need followup chest x-ray to ensure resolution of pneumonia. Thank you for allowing me to participate in the care of your patient. Will follow up with you. [id number]/[facility] #: [id number] AVINASH
[2017-01-28] MEDS: Albuterol/Ipratropium NEB.SOL* Albuterol 2.5 MG/Ipratropium 0.5 MG 3 ML INH SCH ×4 (00:42→20:13)
[2017-01-28] MEDS: Heparin VIAL(*) 5000 UNITS/ML VIAL (FIVE THOUSAND) SUBCUT SCH ×3 (05:28→20:40)
[2017-01-28] MEDS: Mometasone/Formoter 200/5 MDI INH SCH ×2 (07:39→20:13)
[2017-01-28] MEDS: predniSONE TAB* 10 MG PO SCH (10:04)
[2017-01-28] MEDS: amLODIPine TAB* 5 MG PO SCH (10:04)
[2017-01-28] MEDS: Metoprolol Tartrate TAB* 100 MG TAB PO SCH ×2 (10:05→16:05)
[2017-01-28] MEDS: Nystatin SUSPENSION* 100000 UNITS/ML 5 ML UDC PO SCH ×4 (10:05→20:39)
[2017-01-28] MEDS: Linezolid 600 MG IVPREMIX(*) 600 MG/300 ML BAG IVPB SCH (14:04)
--- NOTE | 2017-01-28 14:12 | RAD ---
INDICATION: Urinary tract infections COMPARISON: None TECHNIQUE: Longitudinal and transverse scans of the kidneys were obtained. FINDINGS: Kidneys: The kidneys are normal in size and echogenicity. No renal masses, calculi, or hydronephrosis is seen. There are no perinephric collections. There may be minimal thinning of the renal parenchyma The right kidney measures 10.7 x 4.2 x 5.4 cm and the left kidney 10.2 x 4.9 x 4.0 cm. Other: None IMPRESSION: ESSENTIALLY NORMAL EXAMINATION.
[2017-01-28 15:55] LABS: Hematocrit 44 % (35-47); Mean Corpuscular HGB Conc 32 g/dl (31-36); Mean Corpuscular Hemoglobin 27 pg (27-31); Mean Corpuscular Volume 85 fL (80-97); Mean Platelet Volume 9 um3 (7.4-10.4); Red Blood Count 5.16 10^6/ul (4.0-5.4); Red Cell Distribution Width 16 % (10.5-15); White Blood Count 10.9 10^3/ul (3.5-10.8)
[2017-01-28 16:19] LABS: BUN/Creatinine Ratio 19.4 (8-20); C Reactive Protein 27.79 mg/L (< 5.00); Calcium 9.4 mg/dL (8.6-10.3); EGFR African American 106.3 (>60); EGFR Non-African American 82.6 (>60)
--- NOTE | 2017-01-28 17:55 | PN ---
Subjective Date of Service: 01/28/17 Interval History: This is a 61 yo female with mild intellectual delay admitted with PNA. Patient has been treated with Ceftriaxone/Azithromycin. She has still required supp O2 , pulmonology consult obtained. She has some associated reactive airway disease likely contributing to her prolonged hypoxia. Patient offers no new complaints today. She feels that she is ready to return home. Lab called with results of >100K of VRE growing from her urine culture. She has been urinating frequently, which is why the sample was completed, but she denies abdominal pain, dysuria, n/v. Objective Active Medications: Acetaminophen (Tylenol Tab*) 650 mg PO Q4H PRN PRN Reason: FEVER/PAIN Albuterol (Ventolin Hfa Inhaler*) 2 puff INH Q6H PRN PRN Reason: SOB/WHEEZING Last Admin: 01/25/17 22:30 Dose: 2 puff Albuterol/Ipratropium (Duoneb Neb.Gloria*) 1 neb INH 0100,0700,1300,1900 [facility] Last Admin: 01/28/17 14:03 Dose: 1 neb Amlodipine Besylate (Norvasc Tab*) 10 mg PO DAILY [facility] Last Admin: 01/28/17 10:04 Dose: 10 mg Heparin Sodium (Porcine) (Heparin Vial(*)) 5,000 units SUBCUT Q8HR [facility] Last Admin: 01/28/17 14:04 Dose: 5,000 units Linezolid (Zyvox 600 Mg Ivpremix(*)) 600 mg in 300 mls @ 300 mls/hr IVPB Q12H [facility] Last Admin: 01/28/17 14:04 Dose: 300 mls/hr Metoprolol Tartrate (Lopressor Tab*) 100 mg PO BID WITH MEALS [facility] Last Admin: 01/28/17 16:05 Dose: 100 mg Mometasone Furoate/Formoterol Fumar (Dulera 200/5 Mdi*) 2 puff INH BID [facility] Last Admin: 01/28/17 07:39 Dose: 2 puff Nystatin (Nystatin Suspension*) 500,000 units PO QID [facility] Stop: 02/02/17 16:51 Last Admin: 01/28/17 16:05 Dose: 500,000 units Prednisone (Deltasone Tab*) 30 mg PO DAILY [facility] Stop: 01/29/17 09:01 Last Admin: 01/28/17 10:04 Dose: 30 mg Vital Signs: Temp Pulse Resp BP Pulse Ox 97.7 F 69 18 135/70 98 01/28/17 15:43 01/28/17 15:43 01/28/17 15:43 01/28/17 15:43 01/28/17 15:43 Oxygen Devices in Use Now: Nasal Cannula - 3L Appearance: Well appearing, hard of hearing. In NAD. Accompanied by her Neck: NL Appearance and Movements; NL JVP Respiratory: Symmetrical Chest Expansion and Respiratory Effort, Clear to Auscultation Cardiovascular: NL Sounds; No Murmurs; No JVD, RRR Abdominal: NL Sounds; No Tenderness; No Distention Extremities: No Edema Skin: No Rash or Ulcers Neurological: Alert and Oriented x 3 Result Diagrams: 01/28/17 15:42 01/28/17 15:42 Additional Lab and Data: . Microbiology and Other Data: Microbiology 01/21/17 21:40 Legionella Urinary Antigen - Final Urine Negative Legionella Streptococcus pneumoniae Ag Screen - Final Negative S. pneumo Antigen 01/21/17 18:28 Nasal Screen MRSA (PCR)(ADELA) - Final Nasal Mrsa Negative Microbiology 01/25/17 08:01 Urine Culture - Final Urine Vre Enterococcus Faecium Janna Albicans Diagnostic Imaging: CXR - patchy RLL infiltrate Renal US - neg for hydro Assess/Plan/Problems-Billing Assessment: Ms. Nguyễn is a 61 yo female with a PMH of intellectual disability, asthma, chronic LE edema and HTN who presented to the emergency department on with c/o sob, cough, fever found to have severe bronchospasm secondary to pneumonia. - Patient Problems (1) Acute respiratory failure with hypoxia and hypercapnia Comment: Acute hypoxic hypercarbic respiratory failure secondary to right basilar pneumonia Clinically improved, but has been slow to wean from supp O2 Now using just 2L and O2 sats recorded in high 90s today, will request assessment on RA Appreciate pulm consult Cont steroid taper (2) Pneumonia Comment: CAP Completed antibiotics Patient reports she is largely asx Decreasing O2 needs She may need home O2, will reassess resting and ambulatory saturations tomorrow (3) UTI (urinary tract infection) Comment: >100K colonies of VRE c/o urinary frequency, otherwise asx Does not appear toxic at this time Will start Linezolid as she is also resistent to ampicillin and quinolones Requested ID consult regarding length of therapy No recent catheter use Request PVR measurement to eval for retention, renal US neg for hydro (4) HTN (hypertension) Comment: Normotensive Cont home antihypertensives Status and Disposition: Requires continued hospital stay. Anticipate possible dc tomorrow.
[2017-01-29] MEDS: Linezolid 600 MG IVPREMIX(*) 600 MG/300 ML BAG IVPB SCH ×2 (00:50→12:59)
[2017-01-29] MEDS: Albuterol/Ipratropium NEB.SOL* Albuterol 2.5 MG/Ipratropium 0.5 MG 3 ML INH SCH ×3 (01:00→13:21)
[2017-01-29] MEDS: Heparin VIAL(*) 5000 UNITS/ML VIAL (FIVE THOUSAND) SUBCUT SCH ×2 (05:07→12:59)
[2017-01-29] MEDS: Mometasone/Formoter 200/5 MDI INH SCH (08:14)
[2017-01-29] MEDS: Metoprolol Tartrate TAB* 100 MG TAB PO SCH ×2 (09:07→18:11)
[2017-01-29] MEDS: amLODIPine TAB* 5 MG PO SCH (09:08)
[2017-01-29] MEDS: predniSONE TAB* 10 MG PO SCH (09:09)
[2017-01-29] MEDS: Nystatin SUSPENSION* 100000 UNITS/ML 5 ML UDC PO SCH ×3 (09:09→18:11)
[2017-01-29 15:52] VITALS: BP 137/59
--- NOTE | 2017-01-30 00:34 | CONS ---
CONSULTATION REPORT: DATE OF CONSULT: 01/29/17 REQUESTING PROVIDER: KRISTIAN Quinonez CONSULTING SERVICE: Infectious Disease. REASON FOR CONSULT: Positive urine culture. IMPRESSION: 1. Admitted with community-acquired pneumonia with bronchospasm. Blood cultures were negative, influenza PCR was negative, urine culture was negative, and her respiratory symptoms are improved. 2. She had urinary frequency, which she notes is her baseline without dysuria, flank pain, or suprapubic tenderness. Urinalysis was obtained. This showed squamous epithelial cells, 2+ leukocyte esterase, no nitrites. The urine culture showed VRE and shannan. The culture was initiated by nursing, concerned about frequency. She has no symptoms of infection. Her frequency is baseline according to her, I do not think she has urinary tract infection, particularly because of the polymicrobial aspect of her culture, more of which was shannan in the presence of squamous cells in her urinalysis. 3. Obesity. 4. Intellectual and developmental delay. RECOMMENDATION: Stop linezolid. HISTORY OF PRESENT ILLNESS: This 61-year-old woman with obesity admitted with pneumonia. She had cough, fever, chills, and wheeze. She had broad-spectrum antibiotics and steroids. Her respiratory symptoms are nearly resolved. On the , a nurse noted her to have urinary frequency, which she says is common for her, but she has had no dysuria, flank pain, or suprapubic tenderness. Urinalysis and urine culture were sent with the results as above. She was started on IV linezolid. She has had no change in urinary frequency. She had no fevers, chills, or sweats. Has not had recent urinary tract infection. PAST MEDICAL HISTORY: 1. Hearing impairment. 2. Intellectual delay. 3. Hypertension. 4. Obesity. 5. Lymphedema. MEDICATIONS: While in the hospital: 1. Linezolid 600 mg IV every 12 hours. 2. Tylenol. 3. Albuterol inhaler. 4. Amlodipine. 5. Heparin subcutaneous injection. 6. Metoprolol. 7. Nystatin. 8. Prednisone. ALLERGIES: CODEINE. FAMILY HISTORY: Brother with coronary disease. Mother with diabetes, father with heart disease; both . SOCIAL HISTORY: Nonsmoker, no alcohol. She is . REVIEW OF SYSTEMS: She can only provide limited review, which is negative except as noted above in the history of present illness. PHYSICAL EXAM: Vital Signs: Temperature is 36, heart rate 70, respiratory rate 20, blood pressure 130/50, and O2 sat 94% on room air. In general, she is awake, not in distress, nondiaphoretic. Neurologically, she is oriented. Follows commands. Moves all extremities. HEENT: There is no conjunctival hemorrhage. Oropharynx without lesions. Neck is supple without nuchal rigidity. Lymph Nodes: There is no cervical, supraclavicular, inguinal, axillary, or epitrochlear lymphadenopathy. Heart has regular rate and rhythm without murmurs, rubs, or gallops. Lungs have decreased breath sounds at the bases bilaterally without wheezes or rales. Abdomen is soft, nontender, nondistended without flank tenderness or suprapubic tenderness. Skin: There is no rash or splinter hemorrhages. Musculoskeletal: There is no spine tenderness to palpation or joint synovitis. LAB DATA: White blood cell count 10, hemoglobin 14, platelets 212. Creatinine 0.7. CRP 27. Please see impressions and recommendations as outlined above, which I have discussed with KRISTIAN Quinonez. Thanks for allowing me to see Ms. Nguyễn in consultation. [id number]/[facility] #: [id number] AVINASH
--- NOTE | 2017-01-30 08:34 | DS ---
DISCHARGE SUMMARY: DATE OF ADMISSION: 01/21/17 DATE OF DISCHARGE: 01/29/17 PRIMARY CARE PROVIDER: TIMOTHY Carvajal. CONSULTING CORPORATE INTERN: Dr. Paige. CONSULTING INFECTIOUS DISEASE SPECIALIST: Dr. Ty Amor. DISCHARGING PROVIDER: KRISTIAN Quinonez. SUPERVISING PHYSICIAN: Shanita Torre MD *(dictated by KRISTIAN Quinonez) PRIMARY DISCHARGE DIAGNOSIS: 1. Acute respiratory failure secondary to pneumonia and asthma exacerbation. SECONDARY DISCHARGE DIAGNOSES: 1. Bacteria - no further antibiotic therapy recommended per infectious disease. 2. Congenital hearing loss. 3. Hypertension. 4. Chronic lower extremity edema. 5. Mild intellectual delay. 6. Suspected obstructive sleep apnea. DISCHARGE MEDICATIONS: 1. Albuterol inhaler two puffs inhaled q.6 hours as needed for shortness of breath. 2. DuoNebs one neb inhaled q.4 hours as needed for shortness of breath. 3. Hydrochlorothiazide 25 mg p.o. daily. 4. Lopressor 100 mg p.o. b.i.d. 5. Dulera 200/5 two puffs inhaled twice daily. 6. Amlodipine 10 mg p.o. daily. 7. Prednisone at tapering dose. MEDICATION CHANGES: 1. Prednisone taper. 2. P.r.n. DuoNebs. HOSPITAL IMAGIN. Chest x-ray 01/21/17, shows a right basilar infiltrate. 2. Repeat chest x-ray 01/25/17, shows a worsening right basilar and right upper lobe airspace disease. 3. Renal ultrasound 01/28/17, shows normal exam. No evidence of hydronephrosis. 2. EKG 01/21/17, shows sinus rhythm with a rate of 114 beats per minute. No ischemic changes. HOSPITAL COURSE: This is a 61-year-old female with a history of mild intellectual delay as well as congenital hearing loss and asthma who presented to the emergency department with complaints of cough and shortness of breath as well as fever. She states that for approximately three weeks prior to admission , she had been having cough as well as fevers. In the emergency department her temperature was noted to be as high as 101 degrees Fahrenheit. Initial chest x- ray showed a rather large right basilar infiltrate and the patient was subsequently admitted for a community- acquired pneumonia. The patient's oxygen needs were immediately quite high and she was transferred to the ICU for Vapotherm. The patient required approximately three days of ICU care until her oxygen needs were reduced. The patient was subsequently treated with corticosteroids and scheduled nebulizer treatments. The patient's leukocytosis resolved, and she remained afebrile following admission. The patient's oxygen demands, however, remained quite high. Due to this concern, pulmonology consult was obtained. Dr. Paige evaluated the patient on 01/27/17 who suggested to continue Dulera, which was started during her hospital stay, as well as tapering prednisone and as-needed supplemental oxygen. There is also suspicion for obstructive sleep apnea, and the recommendation is for an outpatient sleep study to be conducted. There was concern that the patient will require supplemental oxygen at the time of discharge. On the morning of discharge, she was able to maintain oxygen saturations in the low 90s at rest and be saturated into the upper 80s with the ambulation. At the time of discharge, the patient was tolerating room air throughout the day without any complaints with ambulation and saturating in the mid 90s. Supplemental oxygen did not seem to be indicated at the time of discharge. Of note, urine culture gathered on 01/25/17 grew VRE enterococcus as well as Janna. Urine culture from 01/21/17 was thought to be contaminated and grew just a few Enterobacteria. The resistance profile on the VRE growing from her urine was quite concerning, sensitive only to linezolid. The patient did note some urinary frequency, but denied any dysuria or abdominal pain. She was treated with just ceftriaxone and azithromycin during her hospital stay, and a Giordano catheter was placed. Due to the severity of the pathogen, requested Infectious Disease consultation from Dr. Ty Amor in regards to appropriate treatment. He felt that, since there were multiple organisms involved including yeast, this likely represented a contaminant and did not require specific treatments per se. DISPOSITION: The patient is being discharged to home. She completed her antibiotic therapy. She will be discharged with Dulera and p.r.n. DuoNebs as well as tapering prednisone. She does require close followup with her primary care provider as well as Dr. Paige, at which point she will be scheduled for an outpatient sleep study. THU MARZULLA, PA CC: TIMOTHY Carvajal; Dr. Paige* [id number]/[facility] #: [id number] [facility]
== END 2017-01-29 18:35 | disposition home health service (06) | DRG 871 ==
LOC: ED 11:52 → MED 12:43 → ICU 18:33 → MED 01-23 10:20
PROVIDERS: ADMIT Internal Medicine; ATTEND Internal Medicine
PROC: 0T9B70Z Drainage of Bladder with Drainage Device, Via Natural or Artificial Opening (ICD-10-PCS; principal; 2017-01-25)
DX: A41.81 Sepsis due to Enterococcus (principal); J18.9 Pneumonia, unspecified organism; J96.01 Acute respiratory failure with hypoxia; J96.02 Acute respiratory failure with hypercapnia; H90.A21 Sensorineural hearing loss, unilateral, right ear, with restricted hearing on the contralateral side; J45.901 Unspecified asthma with (acute) exacerbation; Z68.41 Body mass index [BMI] 40.0-44.9, adult; N39.0 Urinary tract infection, site not specified; I10 Essential (primary) hypertension; J45.909 Unspecified asthma, uncomplicated; F81.9 Developmental disorder of scholastic skills, unspecified; R19.7 Diarrhea, unspecified; B95.2 Enterococcus as the cause of diseases classified elsewhere; Z16.21 Resistance to vancomycin; E66.9 Obesity, unspecified; I89.0 Lymphedema, not elsewhere classified; G47.33 Obstructive sleep apnea (adult) (pediatric); Z91.14 Patient's other noncompliance with medication regimen; Z82.5 Family history of asthma and other chronic lower respiratory diseases; Z88.5 Allergy status to narcotic agent; Z82.49 Family history of ischemic heart disease and other diseases of the circulatory system; Z83.3 Family history of diabetes mellitus
CPT/HCPCS: 36415; 36600; 71010; 71020; 76775; 80048; 80053; 81003; 81015; 82803; 83605; 83880; 84484; 85025; 85049; 85610; 85730; 86140; 87040; 87077; 87086; 87106; 87186; 87502; 87641; 87899; 93005; 94640; 94760; 96374; 99203; 99284; A9270-GY; G0463; J0456; J0696; J1644; J2020; J2543; J2920; J2930; J3370; J7512

== ENCOUNTER 2020-01-15 06:48 | Emergency (ER) | payer MEDICARE ==
[2020-01-15] MEDS ORDERED: Acetaminophen TAB* 325 MG PO ONE (07:08)
--- OUTSIDE RECORDS SUMMARY | 2020-01-15 08:21 | XMS REPORT | Continuity of Care Document ---
:1955 Author Organization [facility] Issue Address [address] [place] [address] Phone Care Team Providers Name Role Benjie ROSADO FOOD PREP WORKERRICARDO Unavailable Unavailable Allergies, Adverse Reactions, Alerts Substance Reaction Status codeine Active HYDROCODONE BITARTRATE Nausea Active guaifenesin Nausea Active No Known Drug Allergies Active Medications Medication Instructions Dosage Effective Dates Status Comments (start - stop) amlodipine 10 mg take 1 tablet by oral 10 MG - Active tablet route every day Problems Condition Effective Dates (start - stop) Clinical Status Unknown Procedures Procedure Date Procedure Unknown Results Test Name Date and Time Measure Units Reference Range Abnormal Flag Status Comments Unknown Encounters Encounter Practice Location Reason(s) Diagnoses Date Provider Providers Description For Visit Copied on Encounter 2018 [facility], Primary -2018 RICARDO. [address] [address]. [place], [place], tel:[phone] tel:[phone] [place] [address] [facility] Jul- K[facility], Primary -2018 [place]. [address] [address]. [place], [place], tel:[phone], [place] [address] tel:[phone] [place] [address] [facility], Primary -2017 RICARD[place]. [address] [address]. [place], [place], tel:[phone] tel:[phone] [place] [address] [facility], Primary -2016 RICARD[place]. [address] [facility] [address]. [place], [place], tel:[phone], [place] [address] tel:[phone] - S [facility] [employer], Primary -2017 [place]. [address], [place], [place], [place], [address]. [address], [place] tel:[phone] tel:[phone] - [facility] [employer], Primary -2016 [place]. [address], [place], [place], [place], [address]. [address], [place] tel:[phone] tel:[phone] - [facility] [employer], Primary -2014 [place]. [address] [place], [place], [place], [address]. [address], [place] tel:[phone] tel:[phone] - S S Sep-16 [employer], Primary -2013 [place], [address], [place] tel:[phone] - [facility] [employer], Primary -2012 NURSE. . Provider: [facility] [place], [address], [place] tel:[phone] - S S Sep-17 [employer], Primary -2011 [place], [address], [place] tel:[phone] - S S Feb-30 [employer], Primary -2011 [place]. [address] [facility] [address]. [place], [place], tel:[phone] [place] [address] tel:[phone] - [facility] [employer], 33 Primary -2010 [place]. [address] [facility] [address]. [place], [place], tel:[phone] [place] [address] tel:[phone] [facility] [employer], Primary -2007 [place], [address], tel:[phone] [facility] [employer], Primary -2006 [place]. [address] [facility] [address]. [place], [place], tel:[phone] [place] [address] tel:[phone] [facility] [employer], Primary -2006 NURSE. . [place], [place], [facility], tel:[phone] [facility] [employer], Primary -2006 [place], [address], tel:[phone] [facility] [employer], Primary -2004 [place], [address], tel:[phone] [facility] [employer], 57 Primary -2005 [place]. [address] [place], [place], [place], [place], [facility]. [address], [place] tel:[phone] tel:[phone] Family History Family Member Diagnosis Age At Onset Father Hypertension Father Diabetes mellitus (Cause Of ) Brother Coronary artery disease Brother Coronary artery disease Mother Hypertension Mother Diabetes mellitus Father Brother Diabetes mellitus Immunizations Vaccine Date Status Comments Influenza, injectable, administered Note: Temp 97.7 ; Source: New quadrivalent, preservative Immunization Record free, split virus Influenza, injectable, administered Source: New Immunization quadrivalent, preservative Record free, split virus Pneumo (2 yrs and older) administered Source: New Immunization (PPV23) Record Pneumococcal conjugate PCV 13 administered Source: New Immunization Record Influenza, injectable, administered Source: New Immunization quadrivalent, preservative Record free, split virus 9612-3005 Influenza, injectable, administered Source: New Immunization quadrivalent, preservative Record free, split virus 3 years or older, Fluarix Quad Fluarix, Flulaval, or Flluzone administered Source: New Immunization Quad Record Fluarix Quadrivalent Syringe administered Source: Source Unspecified Fluarix Quadrivalent Syringe administered Source: New Immunization Record Fluarix administered Source: New Immunization Record Tdap administered Source: New Immunization Record Fluarix administered Source: New Immunization Record flu (split) (3 yrs or older) administered Source: New Immunization 0.5 mL IM with preservatives Record flu (split) (3 yrs or older) administered Source: New Immunization 0.5 mL IM without preservatives Record flu (split) (3 yrs or older) administered Source: New Immunization 0.5 mL IM with preservatives Record flu (split) (3 yrs or older) administered Source: New Immunization Record Payers Payer name Insurance type Covered libertarian ID Authorization(s) [facility] [id number] [facility] [id number] [employer] [facility] M [id number] [employer] [facility] M [id number] [employer] [facility] M [id number] Tod[employer] Options [facility] [id number] [employer] [facility] [id number] Social History Type Description Quantity Date Captured Comments Alcohol Use Details Unknown Caffeine Use Details Unknown Tobacco Use Status Unknown Smoking Status Unknown Vital Signs Date / Height Weight BMI Pulse Blood Temperature Respiratory Body Head BMI Time: Rate Pressure Rate Surface Circumference percentile Area Unknown Chief Complaint And Reason For Visit No information Reason For Referral Reason For Referral Unknown Plan Of Care Date Type Action Status Appointment ERICA GARCIA Appointment ERICA GARCIA Date Type Problem Goal Intervention Status Start Date Unknown History Of Present Illness Encounter Date Complaint History Of Present Illness No information Functional Status Encounter Date Functional Assessment Cognitive Assessment Unknown Medications Administered Medication Instructions Dosage Effective Dates (start - stop) Status Comments Drug Treatment Unknown Instructions Date Instruction Additional Information Unknown
--- NOTE | 2020-01-15 08:56 | ED ---
Upper Extremity Pain - HPI Summary HPI Summary: This patient is a 64-year-old morbidly obese female who presents to the ED with right shoulder pain. Patient states she was going outside today to get the newspaper, slipped and fell on the ice and landed on her right shoulder. She denies hitting her head or denies any other injuries. She is having pain directly over the anterior right shoulder and states she is unable to move her right arm. She denies any rib pain, neck pain, abdominal pain, hip pain, knee pain or headache. She denies hitting her head. She denies LOC. She states she yelled out for her who came out several minutes later. She states it is unclear how long she was on the floor waiting for him. Patient is on blood thinners. Patient denies any pain at rest, only pain with movement. Endorses pain at 3/ 10. Denies any numbness or tingling into the arm or to the fingertips. She does take a blood thinner, however states she does not remember the rest of her medications. - History of Current Complaint Chief Complaint: EDFall Stated Complaint: GENERAL ILLNESS PER EMS Time Seen by Provider: 01/15/20 06:57 Hx Obtained From: Patient Mechanism Of Injury: Blunt Trauma Onset/Duration: Started Hours Ago Timing: Constant Severity Initially: Moderate Severity Currently: Mild Pain Location: Shoulder Character: Aching Aggravating Factor(s): Movement, Lifting, Flexion, Internal/External Rotation, Abduction, Adduction Alleviating Factor(s): Rest Associated Signs & Symptoms: Negative: Swelling, Redness, Bruising, Weakness, Numbness/Tingling Related History: Dominant Hand Right - Risk Factors Non-Orthopedic Risk Factor: Negative DVT Risk Factors: Negative Septic Arthritis Risk Factor: Negative Compartment Syndrome Risk Factors: Pain - Allergies/Home Medications Allergies/Adverse Reactions: Allergies Allergy/AdvReac Type Severity Reaction Status Date / Time codeine Allergy Severe Nausea Verified 01/15/20 07:03 Home Medications: Home Medications Albuterol HFA INHALER* [Ventolin HFA Inhaler*] 2 puff INH .Q4-6H PRN 01/21/17 [ History Confirmed 01/15/20] Hydrochlorothiazide TAB* [Hydrodiuril TAB*] 25 mg PO DAILY 01/21/17 [History Confirmed 01/15/20] Metoprolol Tartrate TAB* [Lopressor TAB*] 100 mg PO BID WITH MEALS 01/21/17 [ History Confirmed 01/15/20] amLODIPine TAB* [Norvasc 5 mg TAB*] 10 mg PO DAILY 01/21/17 [History Confirmed 01/15/20] Loratadine 10 mg PO DAILY 03/19/18 [History Confirmed 01/15/20] Albuterol/Ipratropium NEB.ANNA* [Duoneb (Albuterol 2.5 MG/Ipratropium 0.5 MG)] 1 neb INH TID PRN 01/15/20 [History Confirmed 01/15/20] Benzonatate CAP* [Tessalon 100 MG CAP*] 100 mg PO TID 01/15/20 [History Confirmed 01/15/20] Budesonide/Formote 160/4.5(NF) [Symbicort 160/4.5 (NF)] 2 puff INH BID 01/15/20 [History Confirmed 01/15/20] Calcium Carbonate/Vitamin D3 [Calcium 600 + Vit D Tablet] 1 each PO DAILY [History Confirmed 01/15/20] Cyclobenzaprine TAB* [Flexeril 10 MG TAB*] 10 mg PO TID 01/15/20 [History Confirmed 01/15/20] Fluticasone NASAL SPRAY 50MCG* [Flonase NASAL SPRAY 50MCG*] 2 spray BOTH NARES DAILY 01/15/20 [History Confirmed 01/15/20] L.acidoph,Paracasei, B.lactis [Probiotic] 1 each PO DAILY 01/15/20 [History Confirmed 01/15/20] Varicella-Zoster Ge/As01b/Pf [Shingrix] 50 mcg IM ONCE 01/15/20 [History Confirmed 01/15/20] metFORMIN* [Glucophage 1000 MG TAB *] 1,000 mg PO DAILY 01/15/20 [History Confirmed 01/15/20] PMH/Surg Hx/FS Hx/Imm Hx Previously Healthy: Yes Endocrine/Hematology History: Denies: Hx Diabetes, Hx Thyroid Disease Cardiovascular History: Reports: Hx Congestive Heart Failure, Hx Hypertension Respiratory History: Reports: Hx Asthma Denies: Hx Chronic Obstructive Pulmonary Disease (COPD) GI History: Denies: Hx Ulcer Musculoskeletal History: Denies: Hx Osteoporosis Sensory History: Reports: Hx Deafness, Hx Hearing Problem - Cancer History Hx Chemotherapy: No Hx Radiation Therapy: No - Immunization History Hx Pertussis Vaccination: No Immunizations Up to Date: Yes Infectious Disease History: No Infectious Disease History: Denies: Hx Hepatitis, Hx Human Immunodeficiency Virus (HIV), Traveled Outside the [place] in Last 30 Days - Family History Known Family History: Positive: Hypertension, Diabetes, Respiratory Disease - asthma - Social History Occupation: Unemployed Lives: With Family Alcohol Use: None Hx Substance Use: No Substance Use Type: Reports: None Hx Tobacco Use: No Smoking Status (MU): Never Smoked Tobacco Review of Systems Negative: Fever, Chills, Fatigue, Skin Diaphoresis Negative: Palpitations, Chest Pain Negative: Shortness Of Breath, Cough Positive: Arthralgia Positive: Other - abrasions to the L knee, left elbow and R elbow without evidence of lacerations Negative: Headache, Weakness, Paresthesia, Numbness, Syncope, Slurred Speech All Other Systems Reviewed And Are Negative: Yes Physical Exam Triage Information Reviewed: Yes Vital Signs On Initial Exam: Initial Vitals Temp Pulse Resp BP Pulse Ox 96.2 F 72 20 123/76 96 01/15/20 06:53 01/15/20 06:53 01/15/20 06:53 01/15/20 06:53 01/15/20 06:53 Vital Signs Reviewed: Yes Appearance: Positive: Obese Skin: Positive: Skin Color Reflects Adequate Perfusion, Other - abrasions to the L knee, left elbow and R elbow without evidence of lacerations Head/Face: Positive: Normal Head/Face Inspection Eyes: Positive: EOMI, NGUYEN, Conjunctiva Clear Neck: Positive: Supple, No Lymphadenopathy Respiratory/Lung Sounds: Positive: Clear to Auscultation, Breath Sounds Present Cardiovascular: Positive: RRR, Pulses are Symmetrical in both Upper and Lower Extremities Musculoskeletal: Positive: Pain @ - right shoulder pain - unable to abduct/ adduct Neurological: Positive: Sensory/Motor Intact, Alert, Oriented to Person Place, Time, Speech Normal Psychiatric: Positive: Normal, Affect/Mood Appropriate AVPU Assessment: Alert Procedures - Sedation Patient Received Moderate/Deep Sedation with Procedure: No Diagnostics - Vital Signs Vital Signs Temp Pulse Resp BP Pulse Ox 01/15/20 08:00 71 98 01/15/20 07:55 96.7 F 65 102/72 97 01/15/20 07:24 139/80 01/15/20 07:08 71 96 01/15/20 06:57 68 123/76 93 01/15/20 06:53 96.2 F 72 20 123/76 96 - Laboratory Lab Statement: Any lab studies that have been ordered have been reviewed, and results considered in the medical decision making process. Course/Dx - Course Course Of Treatment: Full examination reveals small abrasion to the left knee and left elbow and right elbow as well as pain to the right shoulder. No lacerations, contusions or signs of ecchymosis. No other signs of trauma. [place] patient without discomfort. Patient is able to flex and extend at both knees. Full ROAM to the left shoulder and elbow. Patient is unable to move the right shoulder due to discomfort. No pain to the clavicle bilaterally on exam. He is alert and oriented, no confusion or memory loss. Acting appropriately per family. Patient states she does not have a headache and denies hitting her head. A right shoulder x-ray obtained which shows a comminuted right humeral fracture. Patient was placed in a sling. Denies any discomfort. She was given Tylenol 650 mg per her request. She will follow up with orthopedic physician as soon as possible. She is stable at discharge. - Diagnoses Differential Diagnosis/HQI/PQRI: Positive: Other - fracture, clavicle injury Provider Diagnoses: Proximal humeral fracture Discharge ED - Sign-Out/Discharge Documenting (check all that apply): Patient Departure - Discharge Plan Condition: Stable Disposition: HOME Patient Education Materials: Proximal Humerus Fracture (ED) Referrals: Vani Monzon NP [Primary Care Provider] - Ingris Santiago MD [Medical Doctor] - Additional Instructions: Please see orthopedics as soon as possible Call TODAY to make an appt you will need to keep your arm in the sling until you follow up with the orthopedic MD Tramadol as needed for pain - up to three times daily Tylenol 650mg three times daily in addition - use both of these medications intermittenlty for maximum pain relieving effect If you have any worsening symptoms, you develop coldness or discoloration of the arm or fingertips, numbness or tingling - return immediately It was a pleasure taking care of you today - Billing Disposition and Condition Condition: STABLE Disposition: Home
[2020-01-15 08:59] VITALS: BP 114/65
== END 2020-01-15 08:37 | disposition home or self-care (01) ==
LOC: ED 06:48
DX: S42.201A Unspecified fracture of upper end of right humerus, initial encounter for closed fracture (principal); S80.212A Abrasion, left knee, initial encounter; S50.312A Abrasion of left elbow, initial encounter; S50.311A Abrasion of right elbow, initial encounter; W00.0XXA Fall on same level due to ice and snow, initial encounter; Y93.01 Activity, walking, marching and hiking; Y92.9 Unspecified place or not applicable; I11.0 Hypertensive heart disease with heart failure; I50.9 Heart failure, unspecified; J45.909 Unspecified asthma, uncomplicated; Z88.5 Allergy status to narcotic agent
CPT/HCPCS: 99283; A9270-GY

== ENCOUNTER 2020-04-16 20:02 | Inpatient (IN) ==
[2020-04-16] MEDS ORDERED: Albuterol/Ipratropium NEB.SOL (2.5/0.5 MG) 3 ML NEB.SOLN INH ONE (20:22)
[2020-04-16] MEDS ORDERED: methylPREDNISolone 125 mg 2 ML VIAL IV ONE (21:28)
[2020-04-16 21:40] LABS: Albumin 3.6 g/dL (3.2-5.2); Albumin/Globulin Ratio 0.8 (1-3); BUN/Creatinine Ratio 24.7 (8-20); Calcium 10.2 mg/dL (8.6-10.3); EGFR African American 97.4 (>60); EGFR Non-African American 80.5 (>60); Globulin 4.3 g/dL (2-4); Potassium 3.7 mmol/L (3.5-5.0); Total Protein 7.9 g/dL (6.4-8.9)
[2020-04-16] MEDS ORDERED: Iodixanol (CONTRAST) 320 MG/ML 100 ML SDV IV ONE (22:38)
[2020-04-16 23:05] LABS: INR 1.19 (0.82-1.09)
[2020-04-16 23:40] LABS: Hematocrit 37 % (35-47); Hemoglobin 11.6 g/dL (12.0-16.0); Mean Corpuscular HGB Conc 31 g/dL (31-36); Mean Corpuscular Hemoglobin 26 pg (27-31); Mean Corpuscular Volume 84 fL (80-97); Red Blood Count 4.46 10^6 /uL (3.70-4.87); Red Cell Distribution Width 18 % (10-15); White Blood Count 14.3 10^3/uL (3.5-10.8)
[2020-04-16] MEDS ORDERED: Furosemide 40 mg/4 ml IV VIAL IV SLOW PU ONE (23:41)
[2020-04-16 23:42] LABS: ABS Basophils 0.1 10^3/ul (0-0.2); ABS Eosinophils 0.1 10^3/ul (0-0.6); ABS Lymphocytes 0.9 10^3/ul (1.0-4.8); ABS Monocytes 0.7 10^3/ul (0-0.8); Lymphocyte % 6.6 %; Mean Platelet Volume 8.2 fL (7.4-10.4); Nucleated Red Blood Cells % 0.2; Platelet Count 267 10^3/uL (150-450)
[2020-04-16] MEDS ORDERED: cefTRIAXone 2 GM ADDV.VIAL 2 GM in NS 0.9% 100 ml BAG 100 ML IVPB ONE (23:45)
[2020-04-17 01:51] LABS: Influenza A Molecular Negative (Negative); Influenza B Molecular Negative (Negative)
[2020-04-17 01:56] LABS: Troponin I 0.01 ng/mL (<0.03)
[2020-04-17] MEDS ORDERED: Al Hydrox/Mg Hydrox/Simet LIQ 30 ML UDC PO PRN (02:03)
[2020-04-17] MEDS ORDERED: Albuterol HFA INHALER 8 gm MDI INH PRN (02:06)
[2020-04-17] MEDS ORDERED: Dextrose 50% Syringe 50 ml 25 GM/50 ML SYRINGE IV PUSH PRN (02:08)
[2020-04-17] MEDS ORDERED: NS 0.9% 1000 ml BAG 1,000 ML IV SCH (02:15)
[2020-04-17 02:45] LABS: C Reactive Protein 67.31 mg/L (<8.01)
[2020-04-17] MEDS: Azithromycin 500 mg/250 ml NS 500 MG/250 ML BAG IVPB SCH (04:55)
[2020-04-17] MEDS ORDERED: Heparin 5000 UNITS/ML 1 mL VIAL SUBCUT SCH (06:00)
[2020-04-17] MEDS: Mometasone/Formoter 200/5 MDI INH SCH ×2 (10:32→19:21)
[2020-04-17] MEDS: Fluticasone NASAL SPRAY 50MCG 16 gm SPRAY BTL BOTH NARES SCH (10:44)
[2020-04-17] MEDS: Enoxaparin 40 MG/0.4 ML SYR SUBCUT SCH (11:10)
[2020-04-17] MEDS ORDERED: Albuterol/Ipratropium NEB.SOL (2.5/0.5 MG) 3 ML NEB.SOLN INH SCH (13:00)
[2020-04-17] MEDS: cefTRIAXone ADVAN VIAL 1 GM in NS 0.9% 50 ML 50 ML IVPB SCH (21:07)
[2020-04-18] MEDS: Azithromycin 500 mg/250 ml NS 500 MG/250 ML BAG IVPB SCH (05:46)
[2020-04-18] MEDS: Mometasone/Formoter 200/5 MDI INH SCH ×3 (06:53→19:24)
[2020-04-18 06:56] LABS: ABS Basophils 0.1 10^3/ul (0-0.2); ABS Lymphocytes 0.3 10^3/ul (1.0-4.8); ABS Monocytes 0.8 10^3/ul (0-0.8); Hematocrit 36 % (35-47); Hemoglobin 11.4 g/dL (12.0-16.0); Lymphocyte % 2.2 %; Mean Corpuscular HGB Conc 32 g/dL (31-36); Mean Corpuscular Hemoglobin 27 pg (27-31); Mean Corpuscular Volume 83 fL (80-97); Mean Platelet Volume 7.9 fL (7.4-10.4); Platelet Count 271 10^3/uL (150-450); Red Blood Count 4.27 10^6 /uL (3.70-4.87); Red Cell Distribution Width 19 % (10-15); White Blood Count 11.5 10^3/uL (3.5-10.8)
[2020-04-18 07:26] LABS: BUN/Creatinine Ratio 29.1 (8-20); Calcium 9.5 mg/dL (8.6-10.3); EGFR African American 80.6 (>60); EGFR Non-African American 66.6 (>60); Potassium 3.8 mmol/L (3.5-5.0)
[2020-04-18 08:12] LABS: Ferritin 101.4 ng/mL (11-307)
[2020-04-18] MEDS: Enoxaparin 40 MG/0.4 ML SYR SUBCUT SCH (09:08)
[2020-04-18] MEDS: Fluticasone NASAL SPRAY 50MCG 16 gm SPRAY BTL BOTH NARES SCH (09:08)
[2020-04-18] MEDS: cefTRIAXone ADVAN VIAL 1 GM in NS 0.9% 50 ML 50 ML IVPB SCH (21:07)
[2020-04-19] MEDS: Azithromycin 500 mg/250 ml NS 500 MG/250 ML BAG IVPB SCH (05:40)
[2020-04-19] MEDS: Fluticasone NASAL SPRAY 50MCG 16 gm SPRAY BTL BOTH NARES SCH (08:37)
[2020-04-19] MEDS: Enoxaparin 40 MG/0.4 ML SYR SUBCUT SCH (08:37)
[2020-04-19] MEDS: Mometasone/Formoter 200/5 MDI INH SCH (08:38)
[2020-04-19 10:07] LABS: Hematocrit 35 % (35-47); Mean Corpuscular HGB Conc 31 g/dL (31-36); Mean Corpuscular Hemoglobin 26 pg (27-31); Mean Corpuscular Volume 84 fL (80-97); Mean Platelet Volume 7.8 fL (7.4-10.4); Platelet Count 254 10^3/uL (150-450); Red Blood Count 4.22 10^6 /uL (3.70-4.87); Red Cell Distribution Width 19 % (10-15); White Blood Count 12.6 10^3/uL (3.5-10.8)
[2020-04-19 10:15] LABS: ABS Basophils 0.1 10^3/ul (0-0.2); ABS Eosinophils 0.5 10^3/ul (0-0.6); ABS Lymphocytes 0.1 10^3/ul (1.0-4.8); ABS Monocytes 0.9 10^3/ul (0-0.8); Lymphocyte % 0.8 %
[2020-04-19 10:22] LABS: BUN/Creatinine Ratio 31.3 (8-20); Calcium 9.1 mg/dL (8.6-10.3); EGFR African American 87.7 (>60); EGFR Non-African American 72.4 (>60); Potassium 3.7 mmol/L (3.5-5.0)
[2020-04-19 11:46] VITALS: BP 121/53
== END 2020-04-19 14:30 | disposition home or self-care (01) | DRG 871 ==
LOC: ED 20:02 → MED 04-17 02:56
PROVIDERS: ADMIT Internal Medicine; ATTEND Hospitalist

== ENCOUNTER 2021-02-16 16:07 | Observation (INO) ==
[2021-02-16] MEDS ORDERED: Albuterol HFA INHALER 8 gm MDI INH ONE (17:46)
[2021-02-16] MEDS ORDERED: methylPREDNISolone 125 mg 2 ML VIAL IV ONE (17:49)
[2021-02-16 17:59] LABS: ABS Eosinophils 0.2 10^3/ul (0-0.6); ABS Lymphocytes 0.9 10^3/ul (1.0-4.8); ABS Monocytes 0.7 10^3/ul (0-0.8); ABS Neutrophils 9.3 10^3/ul (1.5-7.7); Hematocrit 33 % (35-47); Hemoglobin 10.3 g/dL (12.0-16.0); Lymphocyte % 7.9 %; Mean Corpuscular HGB Conc 31 g/dL (31-36); Mean Corpuscular Hemoglobin 26 pg (27-31); Mean Corpuscular Volume 83 fL (80-97); Mean Platelet Volume 7.3 fL (7.4-10.4); Platelet Count 270 10^3/uL (150-450); Red Cell Distribution Width 17 % (10-15); White Blood Count 11.1 10^3/uL (3.5-10.8)
[2021-02-16 18:15] LABS: BUN/Creatinine Ratio 15.1 (8-20); Calcium 9.7 mg/dL (8.6-10.3); EGFR African American 73.4 (>60); EGFR Non-African American 60.7 (>60); Magnesium 1.8 mg/dL (1.9-2.7); Potassium 3.7 mmol/L (3.5-5.0)
[2021-02-16] MEDS ORDERED: Albuterol/Ipratropium NEB.SOL (2.5/0.5 MG) 3 ML NEB.SOLN INH PRN (18:32)
[2021-02-16] MEDS ORDERED: Dextrose 50% Syringe 50 ml 25 GM/50 ML SYRINGE IV PUSH PRN (18:34)
[2021-02-16 19:24] LABS: C Reactive Protein 69.99 mg/L (<8.01)
[2021-02-16] MEDS: Heparin 5000 UNITS/ML 1 mL VIAL SUBCUT SCH (22:14)
[2021-02-16] MEDS: Mometasone/Formoter 200/5 MDI INH SCH (22:18)
[2021-02-16] MEDS: Albuterol HFA INHALER 8 gm MDI INH SCH ×2 (22:19→23:18)
[2021-02-17] MEDS: Albuterol HFA INHALER 8 gm MDI INH SCH (05:13)
[2021-02-17] MEDS: Heparin 5000 UNITS/ML 1 mL VIAL SUBCUT SCH ×3 (05:31→20:11)
[2021-02-17] MEDS: methylPREDNISolone SOD 40 mg/ml 1 ml VIAL IV SCH ×2 (05:31→17:37)
[2021-02-17] MEDS ORDERED: Albuterol HFA INHALER 8 gm MDI INH PRN (06:22)
[2021-02-17 06:27] LABS: ABS Lymphocytes 0.4 10^3/ul (1.0-4.8); ABS Monocytes 0.1 10^3/ul (0-0.8); ABS Neutrophils 8.3 10^3/ul (1.5-7.7); Hematocrit 32 % (35-47); Lymphocyte % 4.3 %; Mean Corpuscular HGB Conc 32 g/dL (31-36); Mean Corpuscular Hemoglobin 26 pg (27-31); Mean Corpuscular Volume 83 fL (80-97); Mean Platelet Volume 7.8 fL (7.4-10.4); Platelet Count 257 10^3/uL (150-450); Red Blood Count 3.81 10^6 /uL (3.70-4.87); Red Cell Distribution Width 17 % (10-15); White Blood Count 8.7 10^3/uL (3.5-10.8)
[2021-02-17 06:47] LABS: Albumin 3.2 g/dL (3.2-5.2); Albumin/Globulin Ratio 0.8 (1-3); BUN/Creatinine Ratio 17.9 (8-20); Calcium 9.3 mg/dL (8.6-10.3); EGFR Non-African American 74.4 (>60); Globulin 3.8 g/dL (2-4); Total Bilirubin 0.4 mg/dL (0.2-1.0)
[2021-02-17] MEDS: Mometasone/Formoter 200/5 MDI INH SCH ×2 (07:58→19:05)
[2021-02-17] MEDS ORDERED: CALCIUM CARBONATE VITAMIN D3 PO SCH (09:00)
[2021-02-17] MEDS ORDERED: Perflutren Lipid Microsphere 3 ML VIAL ONE (09:36)
[2021-02-17] MEDS: Fluticasone NASAL SPRAY 50MCG 16 gm SPRAY BTL BOTH NARES SCH (10:10)
[2021-02-17 14:22] LABS: Urine Appearance Cloudy; Urine Bilirubin Negative (Negative); Urine Blood 2+ (Negative); Urine Color Yellow; Urine Glucose Negative (Negative); Urine Ketones Negative (Negative); Urine Nitrite Negative (Negative); Urine Protein Negative (Negative); Urine Urobilinogen Negative (Negative)
[2021-02-17 14:25] LABS: Urine Bacteria 1+ (Absent); Urine Red Blood Cell 2+(6-10/hpf) (Absent); Urine Squamous Epithelial Cell Present (Absent); Urine White Blood Cell Trace(0-5/hpf) (Absent)
[2021-02-18] MEDS: Heparin 5000 UNITS/ML 1 mL VIAL SUBCUT SCH (04:35)
[2021-02-18 07:32] VITALS: BP 123/58
[2021-02-18] MEDS: Mometasone/Formoter 200/5 MDI INH SCH (07:54)
[2021-02-18] MEDS: Fluticasone NASAL SPRAY 50MCG 16 gm SPRAY BTL BOTH NARES SCH (08:32)
[2021-02-18] MEDS ORDERED: Nystatin TOP POWDER 15 GM BTL TOPICAL SCH (09:00)
[2021-02-18 11:43] LABS: % Iron Saturation 10 % (15-55); Iron 35 ug/dL (50-212); Total Iron Binding Capacity 346 mcg/dL (250-450); Transferrin 247 mg/dL (203-362); Unsaturated Iron Binding < 331 ug/dL
[2021-02-18 12:04] LABS: Ferritin 149.2 ng/mL (11-307)
[2021-02-18 12:08] LABS: Folate 3.86 ng/mL (>3.99); Vitamin B12 258 pg/mL (180-914)
== END 2021-02-18 10:00 | disposition home or self-care (01) ==
LOC: MED 16:07 → ED 16:07 → MED 20:41
PROVIDERS: ADMIT Student in an Organized Health Care Education/Training Program; ATTEND Internal Medicine

== ENCOUNTER 2021-07-10 23:49 | Inpatient (IN) ==
[2021-07-11] MEDS ORDERED: Albuterol HFA INHALER 8 gm MDI INH ONE (00:31)
[2021-07-11] MEDS ORDERED: methylPREDNISolone 125 mg 2 ML VIAL IV ONE (00:31)
[2021-07-11] MEDS ORDERED: Magnesium Sulfate 2 gm BAG 2 GM/50 ML BAG IVPB ONE (00:31)
[2021-07-11 01:11] LABS: PCO2 Arterial 66 mmHg (35-45); PO2 Arterial 63 mmHg (80-100)
[2021-07-11 02:41] LABS: ALT 11 U/L (7-52); Albumin 3.6 g/dL (3.2-5.2); Albumin/Globulin Ratio 0.9 (1-3); Alkaline Phosphatase 73 U/L (35-149); Blood Urea Nitrogen 20 mg/dL (6-24); C Reactive Protein 103.28 mg/L (<8.01); CO2 Carbon Dioxide 40 mmol/L (22-32); Calcium 10.3 mg/dL (8.6-10.3); Chloride 93 mmol/L (101-111); EGFR Non-African American 75.2 (>60); Globulin 4.1 g/dL (2-4); Glucose 140 mg/dL (70-100); Sodium 138 mmol/L (135-145); Total Protein 7.7 g/dL (6.4-8.9)
[2021-07-11 02:59] LABS: Troponin I 0.02 ng/mL (<0.03)
[2021-07-11 03:31] LABS: ABS Basophils 0.1 10^3/ul (0-0.2); ABS Eosinophils 0.1 10^3/ul (0-0.6); ABS Lymphocytes 0.6 10^3/ul (1.0-4.8); ABS Monocytes 0.5 10^3/ul (0-0.8); ABS Neutrophils 11.3 10^3/ul (1.5-7.7); Eosinophil % 0.7 %; Hematocrit 34 % (35-47); Hemoglobin 10.6 g/dL (12.0-16.0); Mean Corpuscular HGB Conc 32 g/dL (31-36); Mean Corpuscular Hemoglobin 26 pg (27-31); Mean Corpuscular Volume 82 fL (80-97); Mean Platelet Volume 8.3 fL (7.4-10.4); Nucleated Red Blood Cells % 0.1; Platelet Count 260 10^3/uL (150-450); Red Blood Count 4.11 10^6 /uL (3.70-4.87); Red Cell Distribution Width 18 % (10-15); White Blood Count 12.6 10^3/uL (3.5-10.8)
[2021-07-11 03:35] LABS: Anion Gap 5 mmol/L (2-11)
[2021-07-11 03:56] LABS: Rapid COVID-19 Molecular Undetected (Undetected)
[2021-07-11 06:31] LABS: Urine Appearance Cloudy; Urine Bilirubin Negative (Negative); Urine Blood 2+ (Negative); Urine Color Yellow; Urine Glucose Negative (Negative); Urine Ketones Trace (Negative); Urine Nitrite Negative (Negative); Urine Protein 1+(30 mg/dL) (Negative); Urine Specific Gravity 1.016 (1.002-1.030); Urine Urobilinogen Negative (Negative)
[2021-07-11 06:40] LABS: Urine Bacteria Absent (Absent); Urine Red Blood Cell Trace(0-2/hpf) (Absent); Urine Squamous Epithelial Cell Present (Absent); Urine White Blood Cell Trace(0-5/hpf) (Absent)
[2021-07-11 06:42] LABS: Potassium Redraw 3.3 mmol/L (3.5-5.0)
[2021-07-11] MEDS ORDERED: cefTRIAXone 1 gm/50 mL NS BAG 1 GM/50 ML BAG ONE (06:55)
[2021-07-11] MEDS: Enoxaparin 40 MG/0.4 ML SYR SUBCUT SCH (07:12)
[2021-07-11] MEDS: cefTRIAXone 1 gm/50 mL NS BAG 1 GM/50 ML BAG IVPB SCH (07:12)
[2021-07-11 07:21] LABS: Hematocrit 31 % (35-47); Hemoglobin 10.1 g/dL (12.0-16.0); Mean Corpuscular HGB Conc 32 g/dL (31-36); Mean Corpuscular Hemoglobin 26 pg (27-31); Mean Corpuscular Volume 81 fL (80-97); Mean Platelet Volume 8.2 fL (7.4-10.4); Platelet Count 224 10^3/uL (150-450); Red Blood Count 3.83 10^6 /uL (3.70-4.87); Red Cell Distribution Width 18 % (10-15); White Blood Count 10.8 10^3/uL (3.5-10.8)
[2021-07-11] MEDS ORDERED: Albuterol HFA INHALER 8 gm MDI INH PRN ×2 (07:32→15:41)
[2021-07-11] MEDS ORDERED: Dextrose 50% Syringe 50 ml 25 GM/50 ML SYRINGE IV PUSH PRN (07:40)
[2021-07-11] MEDS ORDERED: Potassium Chloride LIQUID 20 MEQ/15 ML LIQUID PO ONE (09:00)
[2021-07-11] MEDS: Azithromycin 500 mg/250 ml NS 500 MG/250 ML BAG IVPB SCH (09:40)
[2021-07-11] MEDS ORDERED: Furosemide 20 mg/2 ml IV VIAL IV SLOW PU ONE (09:46)
[2021-07-11] MEDS: Albuterol HFA INHALER 8 gm MDI INH SCH ×3 (12:58→18:21)
[2021-07-11] MEDS ORDERED: Albuterol/Ipratropium NEB.SOL (2.5/0.5 MG) 3 ML NEB.SOLN INH SCH (19:00)
[2021-07-11] MEDS: Mometasone/Formoter 200/5 MDI INH SCH (19:52)
[2021-07-11] MEDS ORDERED: Mometasone/Formoter 200/5 MDI INH SCH (21:00)
[2021-07-12] MEDS: cefTRIAXone 1 gm/50 mL NS BAG 1 GM/50 ML BAG IVPB SCH (05:06)
[2021-07-12] MEDS: Azithromycin 500 mg/250 ml NS 500 MG/250 ML BAG IVPB SCH (05:49)
[2021-07-12] MEDS: Enoxaparin 40 MG/0.4 ML SYR SUBCUT SCH (05:53)
[2021-07-12 06:43] LABS: ABS Basophils 0.1 10^3/ul (0-0.2); ABS Lymphocytes 0.2 10^3/ul (1.0-4.8); ABS Monocytes 0.8 10^3/ul (0-0.8); Eosinophil % 0.3 %; Hematocrit 31 % (35-47); Hemoglobin 9.9 g/dL (12.0-16.0); Lymphocyte % 1.5 %; Mean Corpuscular HGB Conc 32 g/dL (31-36); Mean Corpuscular Hemoglobin 26 pg (27-31); Mean Corpuscular Volume 82 fL (80-97); Mean Platelet Volume 8.2 fL (7.4-10.4); Platelet Count 222 10^3/uL (150-450); Red Blood Count 3.75 10^6 /uL (3.70-4.87); Red Cell Distribution Width 18 % (10-15); White Blood Count 13.2 10^3/uL (3.5-10.8)
[2021-07-12 06:57] LABS: Calcium 9.1 mg/dL (8.6-10.3); EGFR African American 98.4 (>60); EGFR Non-African American 81.3 (>60); Magnesium 1.9 mg/dL (1.9-2.7); Potassium 3.6 mmol/L (3.5-5.0)
[2021-07-12] MEDS ORDERED: Magnesium Hydroxide LIQ 30 ML UDC PO PRN (07:14)
[2021-07-12] MEDS ORDERED: Senna TAB 8.6 mg TAB PO PRN (07:14)
[2021-07-12] MEDS ORDERED: Furosemide 40 mg/4 ml IV VIAL IV ONE ×3 (09:34→17:00)
[2021-07-12] MEDS: Mometasone/Formoter 200/5 MDI INH SCH ×2 (10:17→19:23)
[2021-07-12] MEDS ORDERED: Albuterol/Ipratropium NEB.SOL (2.5/0.5 MG) 3 ML NEB.SOLN INH PRN ×2 (11:24→18:27)
[2021-07-12] MEDS: Albuterol/Ipratropium NEB.SOL (2.5/0.5 MG) 3 ML NEB.SOLN INH SCH ×2 (11:36→16:53)
[2021-07-12] MEDS: methylPREDNISolone SOD 40 mg/ml 1 ml VIAL IV SCH (12:54)
[2021-07-12 14:16] LABS: PCO2 Arterial 43 mmHg (35-45)
[2021-07-12 14:22] LABS: PO2 Arterial 34 mmHg (80-100)
[2021-07-12 14:28] LABS: C Reactive Protein 78.84 mg/L (<8.01)
[2021-07-12 14:58] LABS: PCO2 Arterial 64 mmHg (35-45)
[2021-07-12 15:07] LABS: PO2 Arterial 56 mmHg (80-100)
[2021-07-12] MEDS ORDERED: Piperacillin/Tazobac ADVAN 3.375 GM in NS 0.9% 100 ml BAG 100 ML IV ONE (15:34)
[2021-07-12] MEDS ORDERED: Zosyn per Pharmacy NOTE FOLLOW UP SCH (16:00)
[2021-07-12] MEDS ORDERED: Vancomycin per Pharmacy 1 EA NOTE FOLLOW UP SCH (17:00)
[2021-07-12] MEDS ORDERED: Vancomycin 1,750 MG in NS 0.9% 500 ml BAG 500 ML IVPB ONE (17:15)
[2021-07-12] MEDS ORDERED: Iodixanol (CONTRAST) 320 MG/ML 100 ML SDV IV ONE (17:23)
[2021-07-12] MEDS ORDERED: ZOSYN 3.375 GM Q8H per EXTENDED INFUSION IV SCH (21:00)
[2021-07-13] MEDS: methylPREDNISolone SOD 40 mg/ml 1 ml VIAL IV SCH ×3 (01:33→17:39)
[2021-07-13 05:41] LABS: Urine Appearance Cloudy; Urine Bilirubin Negative (Negative); Urine Blood 2+ (Negative); Urine Color Yellow; Urine Glucose Negative (Negative); Urine Ketones Negative (Negative); Urine Nitrite Negative (Negative); Urine Protein Negative (Negative); Urine Urobilinogen Negative (Negative)
[2021-07-13] MEDS: ZOSYN 3.375 GM Q8H per EXTENDED INFUSION IV SCH ×3 (05:46→23:44)
[2021-07-13] MEDS: Enoxaparin 40 MG/0.4 ML SYR SUBCUT SCH (05:50)
[2021-07-13] MEDS: Vancomycin 1,500 MG in NS 0.9% 250 ml 250 ML IVPB SCH ×2 (05:55→19:42)
[2021-07-13] MEDS: Azithromycin 500 mg/250 ml NS 500 MG/250 ML BAG IVPB SCH (05:55)
[2021-07-13 06:31] LABS: Urine Bacteria Absent (Absent); Urine Red Blood Cell Trace(0-2/hpf) (Absent); Urine Squamous Epithelial Cell Present (Absent); Urine White Blood Cell Trace(0-5/hpf) (Absent)
[2021-07-13 06:36] LABS: Urine Specific Gravity > 1.060 (1.002-1.030)
[2021-07-13] MEDS: Mometasone/Formoter 200/5 MDI INH SCH ×2 (07:41→19:43)
[2021-07-13] MEDS: SPIRIVA Respimat (tiotropium) 2.5 mcg/inh Inhaler INH SCH (07:42)
[2021-07-13] MEDS ORDERED: Bumetanide IV 0.25 MG/ML 4 ml VIAL (1 mg) SLOW PUSH ONE (08:14)
[2021-07-13 08:15] LABS: ABS Basophils 0.1 10^3/ul (0-0.2); ABS Eosinophils 0.1 10^3/ul (0-0.6); ABS Lymphocytes 0.1 10^3/ul (1.0-4.8); ABS Monocytes 0.4 10^3/ul (0-0.8); Eosinophil % 0.3 %; Hematocrit 31 % (35-47); Hemoglobin 9.9 g/dL (12.0-16.0); Lymphocyte % 0.5 %; Mean Corpuscular HGB Conc 32 g/dL (31-36); Mean Corpuscular Hemoglobin 26 pg (27-31); Mean Corpuscular Volume 82 fL (80-97); Mean Platelet Volume 7.7 fL (7.4-10.4); Nucleated Red Blood Cells % 0.1; Platelet Count 218 10^3/uL (150-450); Red Blood Count 3.85 10^6 /uL (3.70-4.87); Red Cell Distribution Width 18 % (10-15); White Blood Count 19.6 10^3/uL (3.5-10.8)
[2021-07-13 08:29] LABS: Calcium 8.9 mg/dL (8.6-10.3); Magnesium 1.7 mg/dL (1.9-2.7); Potassium 2.9 mmol/L (3.5-5.0)
[2021-07-13] MEDS ORDERED: Magnesium Sulfate IV 3 GM in NS 0.9% 100 ml BAG 100 ML IVPB ONE (09:32)
[2021-07-13 10:47] LABS: C Reactive Protein 157.4 mg/L (<8.01)
[2021-07-13 11:08] LABS: PCO2 Arterial 71 mmHg (35-45); PO2 Arterial 65 mmHg (80-100)
[2021-07-13] MEDS ORDERED: NS 0.9% 100 ml BAG 100 ML ONE (11:31)
[2021-07-13 12:17] LABS: Phosphorus 3.1 mg/dL (2.5-5.0)
[2021-07-13] MEDS: KCL 20 MEQ/100 ML IVPREMIX 20 MEQ/100 ML BAG IV SCH ×3 (12:22→17:13)
[2021-07-13] MEDS ORDERED: Buffered Lidocaine 1% SYRIN 1 ml INTRADERM ONE (12:31)
[2021-07-14] MEDS: methylPREDNISolone SOD 40 mg/ml 1 ml VIAL IV SCH ×3 (00:29→16:53)
[2021-07-14] MEDS ORDERED: Vancomycin Trough Check NOTE FOLLOW UP ONE (06:00)
[2021-07-14] MEDS: Enoxaparin 40 MG/0.4 ML SYR SUBCUT SCH (06:07)
[2021-07-14 06:26] LABS: Hematocrit 30 % (35-47); Hemoglobin 9.4 g/dL (12.0-16.0); Mean Corpuscular HGB Conc 31 g/dL (31-36); Mean Corpuscular Hemoglobin 26 pg (27-31); Mean Corpuscular Volume 82 fL (80-97); Mean Platelet Volume 8.2 fL (7.4-10.4); Platelet Count 191 10^3/uL (150-450); Red Blood Count 3.63 10^6 /uL (3.70-4.87); Red Cell Distribution Width 18 % (10-15); White Blood Count 12.9 10^3/uL (3.5-10.8)
[2021-07-14 06:42] LABS: Calcium 8.5 mg/dL (8.6-10.3); EGFR African American 51.1 (>60); EGFR Non-African American 42.2 (>60); Magnesium 2.6 mg/dL (1.9-2.7); Potassium 3.2 mmol/L (3.5-5.0)
[2021-07-14] MEDS: Vancomycin 1,500 MG in NS 0.9% 250 ml 250 ML IVPB SCH (07:05)
[2021-07-14] MEDS: Mometasone/Formoter 200/5 MDI INH SCH ×2 (08:17→19:11)
[2021-07-14] MEDS: SPIRIVA Respimat (tiotropium) 2.5 mcg/inh Inhaler INH SCH (08:18)
[2021-07-14] MEDS: Insulin GLARGINE 100 un/ml 10 ml VIAL SUBCUT SCH (08:20)
[2021-07-14] MEDS: ZOSYN 3.375 GM Q8H per EXTENDED INFUSION IV SCH ×2 (08:24→14:57)
[2021-07-14] MEDS ORDERED: Perflutren Lipid Microsphere 3 ML VIAL ONE (09:00)
[2021-07-14] MEDS ORDERED: Potassium Chlor 20 meq TAB.ER PO ONE (10:23)
[2021-07-14] MEDS: Saline FLUSH-CENTRAL 10 ML SYRINGE CENT\\PICC SCH ×2 (11:17→20:56)
[2021-07-14] MEDS: Cefepime 2 GM in Dextrose 2 GM/50 ML BAG IV SCH (20:52)
[2021-07-15] MEDS: methylPREDNISolone SOD 40 mg/ml 1 ml VIAL IV SCH ×3 (00:24→17:57)
[2021-07-15 05:19] LABS: Hematocrit 30 % (35-47); Hemoglobin 9.6 g/dL (12.0-16.0); Mean Corpuscular HGB Conc 32 g/dL (31-36); Mean Corpuscular Hemoglobin 26 pg (27-31); Mean Corpuscular Volume 81 fL (80-97); Mean Platelet Volume 8.2 fL (7.4-10.4); Platelet Count 203 10^3/uL (150-450); Red Blood Count 3.71 10^6 /uL (3.70-4.87); Red Cell Distribution Width 18 % (10-15); White Blood Count 13.3 10^3/uL (3.5-10.8)
[2021-07-15] MEDS: Enoxaparin 40 MG/0.4 ML SYR SUBCUT SCH (05:39)
[2021-07-15 05:46] LABS: Calcium 8.7 mg/dL (8.6-10.3); EGFR Non-African American 43.8 (>60); Magnesium 2.6 mg/dL (1.9-2.7); Phosphorus 3.6 mg/dL (2.5-5.0); Potassium 3.5 mmol/L (3.5-5.0)
[2021-07-15] MEDS ORDERED: Vancomycin Random Level NOTE FOLLOW UP ONE (06:00)
[2021-07-15 07:30] LABS: Vancomycin Random 19.5 mcg/mL
[2021-07-15] MEDS: SPIRIVA Respimat (tiotropium) 2.5 mcg/inh Inhaler INH SCH (07:33)
[2021-07-15] MEDS: Mometasone/Formoter 200/5 MDI INH SCH ×2 (07:34→19:35)
[2021-07-15] MEDS ORDERED: Potassium Chlor 20 meq TAB.ER PO ONE (08:02)
[2021-07-15] MEDS: Insulin GLARGINE 100 un/ml 10 ml VIAL SUBCUT SCH (08:42)
[2021-07-15] MEDS: Cefepime 2 GM in Dextrose 2 GM/50 ML BAG IV SCH ×2 (08:45→21:01)
[2021-07-15] MEDS: Saline FLUSH-CENTRAL 10 ML SYRINGE CENT\\PICC SCH ×2 (08:50→21:06)
[2021-07-15] MEDS ORDERED: Furosemide 20 mg/2 ml IV VIAL IV ONE (15:45)
[2021-07-16] MEDS: methylPREDNISolone SOD 40 mg/ml 1 ml VIAL IV SCH ×2 (00:44→11:39)
[2021-07-16 04:58] LABS: Hematocrit 32 % (35-47); Hemoglobin 9.9 g/dL (12.0-16.0); Mean Corpuscular HGB Conc 31 g/dL (31-36); Mean Corpuscular Hemoglobin 26 pg (27-31); Mean Corpuscular Volume 82 fL (80-97); Platelet Count 196 10^3/uL (150-450); Red Blood Count 3.86 10^6 /uL (3.70-4.87); Red Cell Distribution Width 18 % (10-15); White Blood Count 15.2 10^3/uL (3.5-10.8)
[2021-07-16 05:20] LABS: Calcium 9.1 mg/dL (8.6-10.3); EGFR African American 48.4 (>60); Magnesium 2.4 mg/dL (1.9-2.7); Phosphorus 4.1 mg/dL (2.5-5.0); Potassium 3.4 mmol/L (3.5-5.0)
[2021-07-16 05:36] LABS: Vancomycin Random 13.4 mcg/mL
[2021-07-16] MEDS: Enoxaparin 40 MG/0.4 ML SYR SUBCUT SCH (05:39)
[2021-07-16] MEDS ORDERED: Vancomycin Random Level NOTE FOLLOW UP ONE (06:00)
[2021-07-16] MEDS: Mometasone/Formoter 200/5 MDI INH SCH ×2 (07:54→20:14)
[2021-07-16] MEDS: SPIRIVA Respimat (tiotropium) 2.5 mcg/inh Inhaler INH SCH (08:02)
[2021-07-16] MEDS ORDERED: Potassium Chlor 20 meq TAB.ER PO ONE (08:07)
[2021-07-16] MEDS: Saline FLUSH-CENTRAL 10 ML SYRINGE CENT\\PICC SCH ×2 (08:34→20:57)
[2021-07-16] MEDS: Insulin GLARGINE 100 un/ml 10 ml VIAL SUBCUT SCH (08:34)
[2021-07-16] MEDS: Cefepime 2 GM in Dextrose 2 GM/50 ML BAG IV SCH ×2 (10:23→20:52)
[2021-07-16 15:04] LABS: C Reactive Protein 44.6 mg/L (<8.01)
[2021-07-16 15:53] LABS: % Iron Saturation 21 % (15-55); Iron 70 ug/dL (50-212); Total Iron Binding Capacity 336 mcg/dL (250-450); Transferrin 240 mg/dL (203-362); Unsaturated Iron Binding < 321 ug/dL
[2021-07-17] MEDS: methylPREDNISolone SOD 40 mg/ml 1 ml VIAL IV SCH (00:18)
[2021-07-17] MEDS: Enoxaparin 40 MG/0.4 ML SYR SUBCUT SCH (05:53)
[2021-07-17 06:25] LABS: ABS Lymphocytes 0.7 10^3/ul (1.0-4.8); ABS Monocytes 0.6 10^3/ul (0-0.8); Eosinophil % 0.2 %; Hematocrit 32 % (35-47); Hemoglobin 10.1 g/dL (12.0-16.0); Lymphocyte % 6.1 %; Mean Corpuscular HGB Conc 32 g/dL (31-36); Mean Corpuscular Hemoglobin 26 pg (27-31); Mean Corpuscular Volume 82 fL (80-97); Mean Platelet Volume 8.5 fL (7.4-10.4); Nucleated Red Blood Cells % 0.1; Platelet Count 191 10^3/uL (150-450); Red Blood Count 3.94 10^6 /uL (3.70-4.87); Red Cell Distribution Width 18 % (10-15); White Blood Count 12.4 10^3/uL (3.5-10.8)
[2021-07-17 06:44] LABS: C Reactive Protein 22.43 mg/L (<8.01); Calcium 8.6 mg/dL (8.6-10.3); EGFR African American 54.6 (>60); EGFR Non-African American 45.1 (>60); Potassium 3.8 mmol/L (3.5-5.0)
[2021-07-17] MEDS: Insulin GLARGINE 100 un/ml 10 ml VIAL SUBCUT SCH (07:54)
[2021-07-17] MEDS: Saline FLUSH-CENTRAL 10 ML SYRINGE CENT\\PICC SCH ×2 (07:57→22:19)
[2021-07-17] MEDS: Cefepime 2 GM in Dextrose 2 GM/50 ML BAG IV SCH (09:22)
[2021-07-17] MEDS: SPIRIVA Respimat (tiotropium) 2.5 mcg/inh Inhaler INH SCH (10:22)
[2021-07-17] MEDS: Mometasone/Formoter 200/5 MDI INH SCH ×2 (10:22→19:42)
[2021-07-18 06:27] LABS: Hematocrit 31 % (35-47); Hemoglobin 9.7 g/dL (12.0-16.0); Mean Corpuscular HGB Conc 31 g/dL (31-36); Mean Corpuscular Hemoglobin 26 pg (27-31); Mean Corpuscular Volume 82 fL (80-97); Mean Platelet Volume 8.6 fL (7.4-10.4); Platelet Count 167 10^3/uL (150-450); Red Blood Count 3.81 10^6 /uL (3.70-4.87); Red Cell Distribution Width 18 % (10-15); White Blood Count 13.6 10^3/uL (3.5-10.8)
[2021-07-18 06:44] LABS: Blood Urea Nitrogen 35 mg/dL (6-24); Calcium 8.4 mg/dL (8.6-10.3); Chloride 99 mmol/L (101-111); EGFR African American 75.1 (>60); Glucose 106 mg/dL (70-100); Sodium 143 mmol/L (135-145)
[2021-07-18 06:50] LABS: % Iron Saturation 14 % (15-55); Iron 46 ug/dL (50-212); Total Iron Binding Capacity 321 mcg/dL (250-450); Transferrin 229 mg/dL (203-362); Unsaturated Iron Binding < 306 ug/dL
[2021-07-18 07:00] LABS: Anion Gap 4 mmol/L (2-11); CO2 Carbon Dioxide 40 mmol/L (22-32)
[2021-07-18 07:06] LABS: Ferritin 146.2 ng/mL (11-307)
[2021-07-18] MEDS: Mometasone/Formoter 200/5 MDI INH SCH (07:28)
[2021-07-18] MEDS: SPIRIVA Respimat (tiotropium) 2.5 mcg/inh Inhaler INH SCH (07:28)
[2021-07-18] MEDS ORDERED: Enoxaparin 40 MG/0.4 ML SYR SUBCUT SCH (07:30)
[2021-07-18] MEDS: Insulin GLARGINE 100 un/ml 10 ml VIAL SUBCUT SCH (08:09)
[2021-07-18] MEDS: Saline FLUSH-CENTRAL 10 ML SYRINGE CENT\\PICC SCH (08:10)
[2021-07-18] MEDS ORDERED: Potassium Chlor 20 meq TAB.ER PO SCH (11:00)
[2021-07-18 11:41] VITALS: BP 135/56
== END 2021-07-18 14:40 | disposition home or self-care (01) | DRG 189 ==
LOC: ED 23:49 → MEDTELE 07-11 05:54 → SUATTDRO 07-11 05:55 → EDHOLD 07-11 05:55 → MED 07-12 04:51 → ICU 07-13 10:31 → MEDTELE 07-14 17:08
PROVIDERS: ADMIT Internal Medicine; ATTEND Internal Medicine